=== PATIENT | female | born 1955 | race Caucasian/White ===

== ENCOUNTER 2018-03-06 17:09 | Emergency (ER) | END 2018-03-06 21:13 | disposition home or self-care (01) ==

== ENCOUNTER 2018-03-29 18:39 | Emergency (ER) | END 2018-03-29 23:51 | disposition home or self-care (01) ==

== ENCOUNTER 2018-04-09 12:06 | Emergency (ER) | END 2018-04-09 17:15 | disposition home or self-care (01) ==

== ENCOUNTER 2018-05-27 18:33 | Inpatient (IN) | payer BC ==
[~2018-05-27] VITALS: Ht 170.2 cm; Wt 77.0 kg
[~2018-05-27 18:33] MED LIST: DULO30CA45 PO; GLIP5TAB13 GTB; IBUP-1542 PO
[2018-05-27 22:03] VITALS: PULSE 112
[2018-05-27 22:05] VITALS: BP 117/56; PULSE 105; RESP 14
[2018-05-27 22:20] VITALS: Ht 170.2 cm; Wt 77.0 kg
[2018-05-27] MEDS ORDERED: morphine 2 MG INJ IV PRN (23:30)
[2018-05-27] MEDS ORDERED: ONDANSETRON 4 MG INJ IV PRN (23:30)
[2018-05-27] MEDS ORDERED: NACL 0.9% 3 ML SYG IV SCH (23:30)
[2018-05-27 23:52] VITALS: BP 119/58; PULSE 111; RESP 14
[2018-05-28] VITALS (25 sets, daily range): BP systolic 112–142; BP diastolic 52–82; PULSE 90–107; RESP 11–20
[2018-05-28] MEDS: HYDROCODONE/APAP (5/325) TAB PO PRN ×3 (00:26→15:41)
[2018-05-28] MEDS: ACETAMINOPHEN 325 MG TAB PO PRN (02:56)
[2018-05-28] MEDS ORDERED: DEXTROSE 50% 50 ML SYRINGE IV PRN ×2 (04:30)
[2018-05-28] MEDS ORDERED: GLUCOSE GEL 15 GRAM TUBE PO PRN ×2 (04:30)
[2018-05-28] MEDS ORDERED: GLUCOSE GEL 15 GRAM TUBE BUCCAL PRN (04:30)
[2018-05-28] MEDS ORDERED: GLUCAGON 1 MG INJ IM PRN (04:30)
--- NOTE | 2018-05-28 04:54 | NUR ---
Received patient at: 2215 Accompanied by: EMS Vitals: stable Pain: 8/10, generalized Pain intervention: [place] x1, Tylenol x1 Note: Pt refusing turning due to pain; refusing SCDs due to pain as well. I educated her on the importance of SCDs and turning She refuses any morphine IV. SW & PT consults ordered. Will continue to monitor.
--- NOTE | 2018-05-28 05:47 | HP ---
Date/Time of Note Date/Time of Note DATE: 05/28/18 TIME: 05:47 Assessment/Plan VTE Prophylaxis Risk score (from Nsg)>0 risk: 9 SCD applied (from Nsg): No SCD contraindicated: other (fractures) Pharmacological prophylaxis: heparin Lines/Catheters IV Catheter Type (from Nrsg): Peripheral IV Urinary Cath still in place: No Assessment/Plan Hospital Course This is a 62-year female being admitted to the telemetry floor for: #1 left elbow fracture: Patient is currently in a sling. I do not have any imaging studies available to me from the transfer facility. will obtain an x- ray of the left upper extremity. We will keep the patient with a sling. IV fluid hydration with normal saline, pain management. Defer to day team to consult orthopedic surgery #2 left hip pain: Patient has tenderness to palpation at the level of the anterior left hip, she does report difficulty moving. The current time will obtain x-rays, may need further imaging with CT. Defer to day team to consult with orthopedic surgery. non weight bearing at the current time until imaging studies are back and seen by orthopedics. #3 depression: Resume Cymbalta as indicated #4 diabetes mellitus: We will check a hemoglobin A1c, insulin sliding scale, will hold home oral medication at the current time, diabetic diet #5 DVT GI prophylaxis: Heparin subcu, no GI prophylaxis indicated further treatment strategy will be implemented as per the clinical course. Result Diagram: 05/27/18232705/27/182327 Results 24hrs Laboratory Tests Test 05/27/18 23:28 White Blood Count 7.8 # Red Blood Count 3.61 L Hemoglobin 9.8 L Hematocrit 30.6 L Mean Corpuscular Volume 84.8 Mean Corpuscular Hemoglobin 27.1 L Mean Corpuscular Hemoglobin Concent 32.0 Red Cell Distribution Width 15.4 H Platelet Count 236 Mean Platelet Volume 10.0 Immature Granulocytes % 0.500 H Neutrophils % 79.4 H Lymphocytes % 12.2 L Monocytes % 7.2 Eosinophils % 0.3 Basophils % 0.4 Nucleated Red Blood Cells % 0.0 Immature Granulocytes # 0.040 H Neutrophils # 6.2 Lymphocytes # 1.0 Monocytes # 0.6 Eosinophils # 0.0 Basophils # 0.0 Nucleated Red Blood Cells # 0.0 Sodium Level 132 L Potassium Level 4.2 Chloride Level 98 Carbon Dioxide Level 30 Anion Gap 4 L Blood Urea Nitrogen 13 Creatinine 0.52 Est Glomerular Filtrat Rate mL/min > 60 Glucose Level 167 Hemoglobin A1c 7.6 H Calcium Level 8.3 L Magnesium Level 1.8 Total Bilirubin 0.4 Direct Bilirubin 0.00 Indirect Bilirubin 0.4 Aspartate Amino Transf (AST/SGOT) 22 Alanine Aminotransferase (ALT/SGPT) 24 Alkaline Phosphatase 61 Total Protein 6.2 Albumin 3.1 L Globulin 3.10 Albumin/Globulin Ratio 1.00 Triglycerides Level 101 Cholesterol Level 119 LDL Cholesterol, Calculated 53 HDL Cholesterol 46 Cholesterol/HDL Ratio 2.5 Thyroid Stimulating Hormone (TSH) 1.280 HPI/ROS Admit Date/Time Admit Date/Time May 27, 2018 at 21:43 Hx of Present Illness Chief complaint: Status post fall This is a 62-year-old female with a past medical history of diabetes mellitus who was transferred from [facility] after she had sustained a ground-level fall. Patient is a poor historian however history was mainly obtained from her as I was not provided any ED physician documentation in the transfer documentation. Patient reports that she was going to a office but it was close to when she came down from the stairs she states that she fell. She denies any loss of consciousness. She states that she fell on her left shoulder as well as her left hip. She was evaluated at [facility]. Apparently she sustained a left elbow fracture. Patient at the current time does report pain in her left elbow as well as pain in her left hip. She is unsure whether she is ambulated since then. Allergies: Paroxetine Medications: See CHRISTOPHER MEDEROS Const: As per HPI Eyes : No pain discharge or redness or change in visual acuity ENT: No pain, sore throat, congestion, congestion, dysphagia or discharge Respiratory: No shortness of breath, cough, sputum, wheezing, or pleuritic pain Cardiovascular: No chest pain, palpitation, PND, or edema GI : no change in appetite, abdominal pain, nausea, vomiting, diarrhea, constipation, or change in the color his stool Genitourinary: No dysuria, hematuria, flank pain , discharge or CVA tenderness Musculoskeletal: As per HPI Skin: No rash, bruising or hives Neuro: No headache, dizziness, syncope, seizure, focal weakness Endocrine: No polyuria, polydipsia, temperature intolerance Psych: No hallucination, depression, anxiety or suicidal ideation PMH/Family/Social Past Medical History Diabetes mellitus, depression Medications Current Medications IV Flush (NS 3 ml) 3 ml PER PROTOCOL IV ; Start 05/27/18 at 23:30 Ondansetron HCl (Zofran Inj) 4 mg Q6H PRN IV NAUSEA AND/OR VOMITING; Start 05/27/18 at 23:30 Acetaminophen (Tylenol Tab) 650 mg Q6H PRN PO PAIN LEVEL 1-3 OR FEVER Last administered on 05/28/18at 02:56; Admin Dose 650 MG; Start 05/27/18 at 23:30 Acetaminophen/ Hydrocodone Bitart ([place] (5/325)) 1 tab Q6H PRN PO PAIN LEVEL 4-6 Last administered on 05/28/18at 00:26; Admin Dose 1 TAB; Start 05/27/18 at 23:30 Acetaminophen/ Hydrocodone Bitart ([place] (5/325)) 2 tab Q6H PRN PO PAIN LEVEL 7-10; Start 05/27/18 at 23:30 Morphine Sulfate (morphine) 2 mg Q4H PRN IV PAIN LEVEL 7-10; Start 05/27/18 at 23:30 Docusate Sodium (Colace) 100 mg Q12H PRN PO CONSTIPATION; Start 05/27/18 at 23:30 Bisacodyl (Dulcolax) 5 mg DAILY PRN PO CONSTIPATION; Start 05/27/18 at 23:30 Insulin Aspart (Novolog Insulin Pen) NOVOLOG *MILD* ALGORITHM WITH MEALS BEDTIME SC ; Start 05/28/18 at 08:00 Miscellaneous Information 1 ea NOTE XX ; Start 05/28/18 at 04:30 Glucose (Glutose) 15 gm Q15M PRN PO DECREASED GLUCOSE; Start 05/28/18 at 04:30 Glucose (Glutose) 22.5 gm Q15M PRN PO DECREASED GLUCOSE; Start 05/28/18 at 04:30 Dextrose (D50w Syringe) 25 ml Q15M PRN IV DECREASED GLUCOSE; Start 05/28/18 at 04:30 Dextrose (D50w Syringe) 50 ml Q15M PRN IV DECREASED GLUCOSE; Start 05/28/18 at 04:30 Glucagon (Glucagen) 1 mg Q15M PRN IM DECREASED GLUCOSE; Start 05/28/18 at 04:30 Glucose (Glutose) 15 gm Q15M PRN BUCCAL DECREASED GLUCOSE; Start 05/28/18 at 04:30 Coded Allergies: paroxetine (Verified Allergy, Unknown, 04/09/18) Past Surgical History Past Surgical Hx: no surgical history, other Family History Significant Family History: no pertinent family hx Social History Alcohol Use: occasionally Smoking Status: Never smoker Drug Use: none Exam/Review of Systems Vital Signs Vitals Vital Signs Date Temp Pulse Resp B/P (MAP) Pulse Ox O2 O2 Flow FiO2 Time Delivery Rate 05/28/18 98.9 100 15 119/52 96 Room Air 03:58 (74) Exam Exam General: Patient is currently lying in bed in mild distress from pain HEENT: Atraumatic, normocephalic. The pupils are equal, round and reactive. Extraocular motor are intact, poor dentition Neck: Supple with full range of motion. No rigidity or meningismus Chest: Nontender Lungs: Clear to auscultation bilaterally no crackles rales or wheezing Heart: Normal S1-S2, Regular rhythm and rate. No murmur, S3, or S4 Abdomen: Soft , nontender, nondistended , bowel sounds are present. No guarding no rebound tenderness , No masses or organomegaly. No costovertebral temporal angle mass Extremities: Left upper extremity currently in a sling, tenderness to palpation at the level of the elbow, left anterior hip pain to palpation Neurologic: Normal mental status, speech normal, cranial nerves II through XII are intact, motor and sensory are intact, gait not assessed secondary to patient's pain Additional Comments EKG: Show sinus tachycardia at approximately 102 bpm, no ST or T wave abnormalities concerning for acute ischemia. BRIAN CHOE May 28, 2018 05:47
--- NOTE | 2018-05-28 06:27 | NUR ---
EOSS N: A&Ox3-4, confused at times, anxious. Complaints of pain throughout shift, partially treated with [place] & Tylenol. Pt refuses morphine. R: RA, saturating well. No sob or dyspnea. CV: NSR, ST. + Murmur GI: ACHS initiated. A1c 7.6 : Bedpan. x2 urinations. MS: BLE pain, L. elbow fracture. Q2hr turning, pt refused at times. SCDs discontinued my MD. Low-air loss ordered. POC: Syncope workup (echo, carotid duplex); XR elbow (L), XR bilateral hip. All of patient's needs attended to. Bed in locked and low position. Bed alarm on at all times. Will endorse to AM nurse.
[2018-05-28] MEDS: HEPARIN 5,000 UNIT/1 ML VIAL SC SCH ×2 (06:50→12:29)
[2018-05-28] MEDS ORDERED: EPHEDrine SULFATE 50 MG/5 ML SYG ONE (07:00)
[2018-05-28] MEDS ORDERED: PROPOFOL 200 MG INJ ONE (07:00)
[2018-05-28] MEDS ORDERED: CEFAZOLIN 1 GM INJ ONE (07:00)
[2018-05-28] MEDS ORDERED: ALBUMIN HUMAN 5% 250 ML INJ ONE (07:00)
[2018-05-28] MEDS ORDERED: SEVOFLURANE 15 MIN ONE (07:00)
[2018-05-28] MEDS: INSULIN ASPART [NOVOLOG] 3 ML PEN SC SCH ×4 (08:30→21:00)
--- NOTE | 2018-05-28 08:58 | PN ---
Date/Time of Note Date/Time of Note DATE: 05/28/18 TIME: 08:58 Assessment/Plan VTE Prophylaxis Risk score (from Nsg)>0 risk: 9 SCD applied (from Nsg): Yes Pharmacological prophylaxis: heparin Lines/Catheters IV Catheter Type (from Nrsg): Peripheral IV Urinary Cath still in place: No Assessment/Plan Assessment/Plan 1. Left proximal humerus fracture and a closed severely comminuted intra- articular left distal humerus fracture - Discussed case with Orthopedic surgery and recommending transfer to higher level of care with fellow trained shoulder-elbow surgeon. Spoke with CM and will reach out to [facility] to initiate transfer. - Pain control and continue arm in sling with nonweight bearing to LUE 2. Left femoral neck fracture - Ortho on board and consultation appreciated. Plans for surgical intervention tonight if unable to transfer patient to tertiary center today - keep NPO in anticipation for surgery - Labs reviewed and within normal limits. Patient does not have any cardiac history and EKG is without ST changes. Patient is optimized medically to underg o surgical intervention. 3. h/o depression - patient states she has not been taking Cymbalta since last discharge but helped when on the medication in the past 4. Diabetes Mellitus - A1c noted - holding glipizide at this time - ISS and accuchecks 5. Disposition - Plans for left hip repair tonight if unable to transfer to high level of care for surgical repair of humeral fracture - Medically cleared for surgical intervention and risks/benefits discussed with patient at bedside - Downgrade to med/surg ortho floor Result Diagram: 05/27/188 05/27/18 2328 Results 24hrs Laboratory Tests Test 05/27/18 23:28 05/28/18 08:03 White Blood Count 7.8 # Red Blood Count 3.61 L Hemoglobin 9.8 L Hematocrit 30.6 L Mean Corpuscular Volume 84.8 Mean Corpuscular Hemoglobin 27.1 L Mean Corpuscular Hemoglobin Concent 32.0 Red Cell Distribution Width 15.4 H Platelet Count 236 Mean Platelet Volume 10.0 Immature Granulocytes % 0.500 H Neutrophils % 79.4 H Lymphocytes % 12.2 L Monocytes % 7.2 Eosinophils % 0.3 Basophils % 0.4 Nucleated Red Blood Cells % 0.0 Immature Granulocytes # 0.040 H Neutrophils # 6.2 Lymphocytes # 1.0 Monocytes # 0.6 Eosinophils # 0.0 Basophils # 0.0 Nucleated Red Blood Cells # 0.0 Sodium Level 132 L Potassium Level 4.2 Chloride Level 98 Carbon Dioxide Level 30 Anion Gap 4 L Blood Urea Nitrogen 13 Creatinine 0.52 Est Glomerular Filtrat Rate mL/min > 60 Glucose Level 167 Hemoglobin A1c 7.6 H Calcium Level 8.3 L Magnesium Level 1.8 Total Bilirubin 0.4 Direct Bilirubin 0.00 Indirect Bilirubin 0.4 Aspartate Amino Transf (AST/SGOT) 22 Alanine Aminotransferase (ALT/SGPT) 24 Alkaline Phosphatase 61 Total Protein 6.2 Albumin 3.1 L Globulin 3.10 Albumin/Globulin Ratio 1.00 Triglycerides Level 101 Cholesterol Level 119 LDL Cholesterol, Calculated 53 HDL Cholesterol 46 Cholesterol/HDL Ratio 2.5 Thyroid Stimulating Hormone (TSH) 1.280 Bedside Glucose 183 Subjective 24 Hr Interval Summary Free Text/Dictation Patient drowsy but given pain control recently. Patient states she has been doing well after last admission until yesterday when she sustained the fall. She denies any recent binge drinking and only had a few drinks during the holiday season. Does admit to pain but controlled with current pain control. Exam/Review of Systems Vital Signs Vitals Vital Signs Date Temp Pulse Resp B/P (MAP) Pulse Ox O2 O2 Flow FiO2 Time Delivery Rate 05/28/18 97.6 93 113/54 94 Room Air 07:18 (73) 05/28/18 15 03:58 Intake and Output 05/27/18 05/27/18 05/28/18 1515:00 23:00 07:00 IntakeIntake Total 300 ml BalanceBalance 300 ml Exam General: Patient is currently lying in bed, drowsy but in no acute distress Neck: Supple Lungs: Clear to auscultation bilaterally no crackles rales or wheezing Heart: Normal S1-S2, Regular rhythm and rate. No murmur, S3, or S4 Abdomen: Soft , nontender, nondistended , bowel sounds are present. No guarding no rebound tenderness Extremities: left upper extremity in kerlix. when removed a small area of bleeding but no open fracture appreciated. tenderness to palpation at the level of the elbow, left anterior hip pain to palpation Skin: open area lateral aspect of L elbow with ecchymosis and swelling. Medications Medications Current Medications IV Flush (NS 3 ml) 3 ml PER PROTOCOL IV ; Start 05/27/18 at 23:30 Ondansetron HCl (Zofran Inj) 4 mg Q6H PRN IV NAUSEA AND/OR VOMITING; Start 05/27/18 at 23:30 Acetaminophen (Tylenol Tab) 650 mg Q6H PRN PO PAIN LEVEL 1-3 OR FEVER Last administered on 05/28/18at 02:56; Admin Dose 650 MG; Start 05/27/18 at 23:30 Acetaminophen/ Hydrocodone Bitart ([place] (5/325)) 1 tab Q6H PRN PO PAIN LEVEL 4-6 Last administered on 05/28/18at 00:26; Admin Dose 1 TAB; Start 05/27/18 at 23:30 Acetaminophen/ Hydrocodone Bitart ([place] (5/325)) 2 tab Q6H PRN PO PAIN LEVEL 7-10; Start 05/27/18 at 23:30 Morphine Sulfate (morphine) 2 mg Q4H PRN IV PAIN LEVEL 7-10; Start 05/27/18 at 23:30 Docusate Sodium (Colace) 100 mg Q12H PRN PO CONSTIPATION; Start 05/27/18 at 23:30 Bisacodyl (Dulcolax) 5 mg DAILY PRN PO CONSTIPATION; Start 05/27/18 at 23:30 Insulin Aspart (Novolog Insulin Pen) NOVOLOG *MILD* ALGORITHM WITH MEALS BEDTIME SC Last administered on 05/28/18at 08:30; Admin Dose 2 UNIT; Start 05/28/18 at 08:00 Miscellaneous Information 1 ea NOTE XX ; Start 05/28/18 at 04:30 Glucose (Glutose) 15 gm Q15M PRN PO DECREASED GLUCOSE; Start 05/28/18 at 04:30 Glucose (Glutose) 22.5 gm Q15M PRN PO DECREASED GLUCOSE; Start 05/28/18 at 04:30 Dextrose (D50w Syringe) 25 ml Q15M PRN IV DECREASED GLUCOSE; Start 05/28/18 at 04:30 Dextrose (D50w Syringe) 50 ml Q15M PRN IV DECREASED GLUCOSE; Start 05/28/18 at 04:30 Glucagon (Glucagen) 1 mg Q15M PRN IM DECREASED GLUCOSE; Start 05/28/18 at 04:30 Glucose (Glutose) 15 gm Q15M PRN BUCCAL DECREASED GLUCOSE; Start 05/28/18 at 04:30 Heparin Sodium (Porcine) (Heparin (5000 Units/1ml)) 5,000 unit Q8 SC Last administered on 05/28/18at 06:50; Admin Dose 5,000 UNIT; Start 05/28/18 at 06:30 VALERY LI MD May 28, 2018 08:58
--- NOTE | 2018-05-28 10:30 | NUR ---
PT NOTE: Received MD order for PT evaluation. Patient with elbow, humerus and L hip fracture. Will await ortho consult for further clarification. Matilde CAMPOS notified.
[2018-05-28] MEDS ORDERED: LORAZEPAM 2 MG INJ IV PRN (11:30)
[2018-05-28] MEDS: DULOXETINE 30 MG CAP DR PO SCH (11:52)
--- NOTE | 2018-05-28 12:31 | CONS ---
Date/Time of Note Date/Time of Note DATE: 05/28/18 TIME: 12:15 Assessment/Plan Assessment/Plan Hospital Course This is a 62-year-old female who was transferred to [facility]. Upon evaluation she is in fact a polytrauma she has of multiple fractures including the left proximal humerus fracture, a closed severely comminuted intra-articular left distal humerus fracture as well as a left femoral neck fracture. Given the complexity of her elbow fracture she requires a fellowship trained shoulder- elbow surgeon. I will also defer the treatment of the proximal humerus fracture to that surgeon. None is available at this time at [facility]. Therefore I am recommending transfer to higher level of care. The primary team as well as case management had already started the process to have her trans ferred to [facility]. However this may take a couple days. Therefore I am recommending that she does undergo fixation of her left hip fracture while admitted to [facility] in order to prevent displacement, enable mobilization, and decreased pain. She does need additional imaging for complete evaluation of the elbow and proximal humerus fracture. However since that these will not be definitively treated here at [facility], I will defer obtaining the CT scans until she sees her treating surgeon so he or she can have the imaging in their system. Plan: Percutaneous fixation of the left hip fracture tonight. Will need formal AP pelvis as well as AP and lateral of the left femur for preoperative planning as the current radiographs were not adequate quality. Preop clearance Follow-up coagulation studies Nonweightbearing left lower extremity Nonweightbearing left upper extremity. Continue posterior splint and sling for left upper extremity. No range of motion. DVT prophylaxis: SCDs. Postop Lovenox 40 mg daily will be added. Result Diagram: 05/27/18232705/27/182327 Results 24hrs Laboratory Tests Test 05/27/18 23:28 05/28/18 08:03 05/28/18 08:32 05/28/18 11:51 White Blood Count 7.8 # Red Blood Count 3.61 L Hemoglobin 9.8 L Hematocrit 30.6 L Mean Corpuscular 84.8 Volume Mean Corpuscular 27.1 L Hemoglobin Mean Corpuscular 32.0 Hemoglobin Concent Red Cell 15.4 H Distribution Width Platelet Count 236 Mean Platelet Volume 10.0 Immature 0.500 H Granulocytes % Neutrophils % 79.4 H Lymphocytes % 12.2 L Monocytes % 7.2 Eosinophils % 0.3 Basophils % 0.4 Nucleated Red Blood 0.0 Cells % Immature 0.040 H Granulocytes # Neutrophils # 6.2 Lymphocytes # 1.0 Monocytes # 0.6 Eosinophils # 0.0 Basophils # 0.0 Nucleated Red Blood 0.0 Cells # Sodium Level 132 L Potassium Level 4.2 Chloride Level 98 Carbon Dioxide Level 30 Anion Gap 4 L Blood Urea Nitrogen 13 Creatinine 0.52 Est Glomerular > 60 Filtrat Rate mL/min Glucose Level 167 Hemoglobin A1c 7.6 H Calcium Level 8.3 L Magnesium Level 1.8 Total Bilirubin 0.4 Direct Bilirubin 0.00 Indirect Bilirubin 0.4 Aspartate Amino 22 Transf (AST/SGOT) Alanine 24 Aminotransferase (AL T/SGPT) Alkaline Phosphatase 61 Total Protein 6.2 Albumin 3.1 L Globulin 3.10 Albumin/Globulin 1.00 Ratio Triglycerides Level 101 Cholesterol Level 119 LDL Cholesterol, 53 Calculated HDL Cholesterol 46 Cholesterol/HDL 2.5 Ratio Thyroid Stimulating 1.280 Hormone (TSH) Bedside Glucose 183 179 Hepatitis B Surface NEGATIVE Antigen Hepatitis C Antibody NEGATIVE Consultation Date/Type/Reason Admit Date/Time May 27, 2018 at 21:43 Date of Consultation: May 28, 2018 Reason for Consultation Left upper and lower extremity injury. Hx of Present Illness This is a 62-year-old female who first presented to an outside hospital [facility]. Per report she was diagnosed with left elbow injury as well as a possible left hip fracture. Secondary to insurance reasons she was transferred to [facility]. At that time I was consulted for orthopedic evaluation and treatment. The patient states she has pain in her left elbow and arm as well as her left leg. She denies numbness and tingling both the left arm and leg. Patient states that she fell down a step or 2. She is unsure how this happened. She cannot clearly tell me if she had loss of consciousness. Denies previous injury to to her left arm and leg. Prior to this she did not have any hip pain or difficulty ambulating. Of note patient states that she does drink alcohol on a rare occasion. She then added that she is to regularly go to AA meetings secondary to alcohol dependence. States her last drink was at least a couple weeks ago. Patient denies fever, chills, shortness of breath, chest pain, nausea/vomiting, constipation, diarrhea, numbness, and tingling. Past Medical History Diabetes Impression Alcohol dependence Medications Current Medications IV Flush (NS 3 ml) 3 ml PER PROTOCOL IV ; Start 05/27/18 at 23:30 Ondansetron HCl (Zofran Inj) 4 mg Q6H PRN IV NAUSEA AND/OR VOMITING; Start 05/27/18 at 23:30 Acetaminophen (Tylenol Tab) 650 mg Q6H PRN PO PAIN LEVEL 1-3 OR FEVER Last administered on 05/28/18at 02:56; Admin Dose 650 MG; Start 05/27/18 at 23:30 Acetaminophen/ Hydrocodone Bitart ([place] (5/325)) 1 tab Q6H PRN PO PAIN LEVEL 4-6 Last administered on 05/28/18at 00:26; Admin Dose 1 TAB; Start 05/27/18 at 23:30 Acetaminophen/ Hydrocodone Bitart ([place] (5/325)) 2 tab Q6H PRN PO PAIN LEVEL 7-10; Start 05/27/18 at 23:30 Morphine Sulfate (morphine) 2 mg Q4H PRN IV PAIN LEVEL 7-10; Start 05/27/18 at 23:30 Docusate Sodium (Colace) 100 mg Q12H PRN PO CONSTIPATION; Start 05/27/18 at 23:30 Bisacodyl (Dulcolax) 5 mg DAILY PRN PO CONSTIPATION; Start 05/27/18 at 23:30 Insulin Aspart (Novolog Insulin Pen) NOVOLOG *MILD* ALGORITHM WITH MEALS BEDTIME SC Last administered on 05/28/18at 08:30; Admin Dose 2 UNIT; Start 05/28/18 at 08:00 Miscellaneous Information 1 ea NOTE XX ; Start 05/28/18 at 04:30 Glucose (Glutose) 15 gm Q15M PRN PO DECREASED GLUCOSE; Start 05/28/18 at 04:30 Glucose (Glutose) 22.5 gm Q15M PRN PO DECREASED GLUCOSE; Start 05/28/18 at 04:30 Dextrose (D50w Syringe) 25 ml Q15M PRN IV DECREASED GLUCOSE; Start 05/28/18 at 04:30 Dextrose (D50w Syringe) 50 ml Q15M PRN IV DECREASED GLUCOSE; Start 05/28/18 at 04:30 Glucagon (Glucagen) 1 mg Q15M PRN IM DECREASED GLUCOSE; Start 05/28/18 at 04:30 Glucose (Glutose) 15 gm Q15M PRN BUCCAL DECREASED GLUCOSE; Start 05/28/18 at 04:30 Heparin Sodium (Porcine) (Heparin (5000 Units/1ml)) 5,000 unit Q8 SC Last administered on 05/28/18at 06:50; Admin Dose 5,000 UNIT; Start 05/28/18 at 06:30 Allergies: Coded Allergies: paroxetine (Verified Allergy, Unknown, 04/09/18) Past Surgical History Past Surgical Hx: no surgical history, other Family History Significant Family History: no pertinent family hx Social History Alcohol Use: occasionally Smoking Status: Never smoker Drug Use: none Exam/Review of Systems Vital Signs Vitals Vital Signs Date Temp Pulse Resp B/P (MAP) Pulse Ox O2 O2 Flow FiO2 Time Delivery Rate 05/28/18 97.6 93 113/54 94 Room Air 07:18 (73) 05/28/18 15 03:58 Intake and Output 05/27/18 05/27/18 05/28/18 1515:00 23:00 07:00 IntakeIntake Total 300 ml BalanceBalance 300 ml Exam General: Awake, alert, in no acute distress, pleasant and cooperative Heart: regular rhythm Lungs: breathing comfortably, no tachypnea or dyspnea MUSCULOSKELETAL: Left upper extremity: Posterior splint was removed. There is a bandage over the posterior aspect of the elbow. This was removed. There was a soft tissue wound with bleeding. The wound was approximately half centimeter by half centimeter with a more superficial abrasion about 3 x 5 cm. The wound was cleaned and probed with a sterile Q-tip. There was no violation of the deep subcutaneous tissue. The wound was a full-thickness dermal injury. Swelling and ecchymosis about the elbow with tenderness to palpation. There is tenderness to palpation to the proximal humerus. Nontender to palpation along the forearm and wrist and hand. Sensation intact to light touch in a median, ulnar, radial, and axillary distribution. Motor is intact in a median, ulnar, radial, anterior interosseous, and posterior interosseous nerve distribution. Radial and ulnar artery are +2. Wrist extension and flexion are intact. Compartments are soft. Left lower extremity: Skin intact. There is groin pain to logroll. No rotational deformity. Legs not shortened. Sensation intact to light touch in a sural, saphenous, deep peroneal, superficial peroneal, medial and lateral plantar nerve distribution. Motor is intact, patient able to dorsiflex and plantarflex ankle and extend and flex great toe. Dorsalis Pedis pulse +2, Brisk capillary refill. Compartments are soft. Calves non-tender to palpation bilaterally. Medications Medications Current Medications IV Flush (NS 3 ml) 3 ml PER PROTOCOL IV ; Start 05/27/18 at 23:30 Ondansetron HCl (Zofran Inj) 4 mg Q6H PRN IV NAUSEA AND/OR VOMITING; Start 05/27/18 at 23:30 Acetaminophen (Tylenol Tab) 650 mg Q6H PRN PO PAIN LEVEL 1-3 OR FEVER Last administered on 05/28/18at 02:56; Admin Dose 650 MG; Start 05/27/18 at 23:30 Acetaminophen/ Hydrocodone Bitart ([place] (5/325)) 1 tab Q6H PRN PO PAIN LEVEL 4-6 Last administered on 05/28/18at 00:26; Admin Dose 1 TAB; Start 05/27/18 at 23:30 Acetaminophen/ Hydrocodone Bitart ([place] (5/325)) 2 tab Q6H PRN PO PAIN LEVEL 7-10; Start 05/27/18 at 23:30 Morphine Sulfate (morphine) 2 mg Q4H PRN IV PAIN LEVEL 7-10; Start 05/27/18 at 23:30 Docusate Sodium (Colace) 100 mg Q12H PRN PO CONSTIPATION; Start 05/27/18 at 23:30 Bisacodyl (Dulcolax) 5 mg DAILY PRN PO CONSTIPATION; Start 05/27/18 at 23:30 Insulin Aspart (Novolog Insulin Pen) NOVOLOG *MILD* ALGORITHM WITH MEALS BEDTIME SC Last administered on 05/28/18at 08:30; Admin Dose 2 UNIT; Start 05/28/18 at 08:00 Miscellaneous Information 1 ea NOTE XX ; Start 05/28/18 at 04:30 Glucose (Glutose) 15 gm Q15M PRN PO DECREASED GLUCOSE; Start 05/28/18 at 04:30 Glucose (Glutose) 22.5 gm Q15M PRN PO DECREASED GLUCOSE; Start 05/28/18 at 04:30 Dextrose (D50w Syringe) 25 ml Q15M PRN IV DECREASED GLUCOSE; Start 05/28/18 at 04:30 Dextrose (D50w Syringe) 50 ml Q15M PRN IV DECREASED GLUCOSE; Start 05/28/18 at 04:30 Glucagon (Glucagen) 1 mg Q15M PRN IM DECREASED GLUCOSE; Start 05/28/18 at 04:30 Glucose (Glutose) 15 gm Q15M PRN BUCCAL DECREASED GLUCOSE; Start 05/28/18 at 04:30 Heparin Sodium (Porcine) (Heparin (5000 Units/1ml)) 5,000 unit Q8 SC Last administered on 05/28/18at 06:50; Admin Dose 5,000 UNIT; Start 05/28/18 at 06:30 Imaging Imaging All x-rays obtained after admission and personally reviewed by myself. AP and lateral of the left hip demonstrate a minimally displaced valgus impacted subcapital femoral neck fracture. Quality of x-ray is poor secondary to being portable and position. Bone is diffusely osteopenic 3 views of the left elbow in the posterior splint demonstrate a severely comminuted intra-articular Y type distal humerus fracture. There is significant displacement of the fracture. The fracture lines are quite distal. Bone is diffusely osteopenic 2 views of the left humerus again demonstrate a distal humerus fracture, though poorly visualized. A surgical neck and greater tuberosity fracture is visualized with minimal displacement of the surgical neck. Bone is diffusely osteopenic With 2 views of the left forearm again demonstrate distal humerus fracture that is poorly visualized. No additional injury noted. Bone is diffusely osteopenic ABRAHAM ZIMMERMAN MD May 28, 2018 12:26
--- NOTE | 2018-05-28 12:31 | NUR ---
CASE MANAGEMENT NOTE REFERRAL MADE TO [facility] IN REGARD TO ELBOW FX AND SURGERY, CM S/W KUMAR [phone] AT [facility] AND PT IS BEING REVIEWED AND KUMAR WAS PROVIDED WITH MD ERASMO GALVAN AND MD LI'S CONTACT INFORMATION WELL, MALIK AT [facility] MADE AWARE, CM WILL REMAIN AVAILABLE. Addendum: 05/28/18 at 1249 by CARMELA BELTRAN RN, CM MD ERASMO GALVAN
[2018-05-28] MEDS: morphine 4 MG/ML VIAL IV PRN (13:25)
[2018-05-28] MEDS ORDERED: PIPER-TAZO 3.375 GM IV (PMX) 100 ML IVPB SCH (14:00)
--- NOTE | 2018-05-28 18:40 | NUR ---
EOSS: Report given to Zayda Pre-op, stated will picker and sorter load and unload pt in 30 mins; coordinated with transport. Consent obtained for surgery tonight. Kept pt on NPO status. Pt asleep at this time. [place] and morphine given for pain on LT hip. Assisted pt to bedpan to urinate, kept pt clean and dry throughout the shift. Med surg status, pending bed. All needs attended at this time. Will endorse plan of care to oncoming shift.
--- NOTE | 2018-05-28 19:18 | PREAC ---
Date/Time of Note Date/Time of Note DATE: 05/28/18 TIME: 19:16 Anesthesia Eval and Record Evaluation Time Pre-Procedure Interview DATE: 05/28/18 TIME: 19:16 Age 62 Sex female NPO: 8 hrs Preoperative diagnosis Left Femur Fracture and Left Elbow and Humerus Fracture Planned procedure Left femoral Hemiarthroplasty vs Screw Fixation Past Medical History Past Medical History: Includes Cardio: HTN Endo: Diabetes Heme: Anemia Surgery & Anesthesia Issues No known issue Meds Anticoagulation: No Beta Walt within 24 hr: No Reason Beta Walt not given: Pt. not on B-Walt Active Scripts Glipizide* (Glipizide*) 5 Mg Tablet, 2.5 MG GTB AC BREAKFAST, #30 TAB Prov:NING MONTANEZ MD 02/20/18 Duloxetine Hcl* (Cymbalta*) 30 Mg Capsule.dr, 30 MG PO DAILY, #30 Prov:NING MONTANEZ MD 02/20/18 Reported Medications Ibuprofen* (Ibuprofen*) 600 Mg Tablet, 600 MG PO Q8, TAB 03/06/18 Current Medications IV Flush (NS 3 ml) 3 ml PER PROTOCOL IV ; Start 05/27/18 at 23:30 Ondansetron HCl (Zofran Inj) 4 mg Q6H PRN IV NAUSEA AND/OR VOMITING; Start 05/27/18 at 23:30 Acetaminophen (Tylenol Tab) 650 mg Q6H PRN PO PAIN LEVEL 1-3 OR FEVER Last administered on 05/28/18at 02:56; Admin Dose 650 MG; Start 05/27/18 at 23:30 Acetaminophen/ Hydrocodone Bitart ([place] (5/325)) 1 tab Q6H PRN PO PAIN LEVEL 4-6 Last administered on 05/28/18at 00:26; Admin Dose 1 TAB; Start 05/27/18 at 23:30 Acetaminophen/ Hydrocodone Bitart ([place] (5/325)) 2 tab Q6H PRN PO PAIN LEVEL 7-10 Last administered on 05/28/18at 15:41; Admin Dose 2 TAB; Start 05/27/18 at 23:30 Docusate Sodium (Colace) 100 mg Q12H PRN PO CONSTIPATION; Start 05/27/18 at 23:30 Bisacodyl (Dulcolax) 5 mg DAILY PRN PO CONSTIPATION; Start 05/27/18 at 23:30 Insulin Aspart (Novolog Insulin Pen) NOVOLOG *MILD* ALGORITHM WITH MEALS BEDTIME SC Last administered on 05/28/18at 18:09; Admin Dose 1 UNIT; Start 05/28/18 at 08:00 Miscellaneous Information 1 ea NOTE XX ; Start 05/28/18 at 04:30 Glucose (Glutose) 15 gm Q15M PRN PO DECREASED GLUCOSE; Start 05/28/18 at 04:30 Glucose (Glutose) 22.5 gm Q15M PRN PO DECREASED GLUCOSE; Start 05/28/18 at 04:30 Dextrose (D50w Syringe) 25 ml Q15M PRN IV DECREASED GLUCOSE; Start 05/28/18 at 04:30 Dextrose (D50w Syringe) 50 ml Q15M PRN IV DECREASED GLUCOSE; Start 05/28/18 at 04:30 Glucagon (Glucagen) 1 mg Q15M PRN IM DECREASED GLUCOSE; Start 05/28/18 at 04:30 Glucose (Glutose) 15 gm Q15M PRN BUCCAL DECREASED GLUCOSE; Start 05/28/18 at 04:30 Heparin Sodium (Porcine) (Heparin (5000 Units/1ml)) 5,000 unit Q8 SC Last administered on 05/28/18at 06:50; Admin Dose 5,000 UNIT; Start 05/28/18 at 06:30; Status Hold Piperacillin Sod/ Tazobactam Sod 100 ml @ 200 mls/hr Q8 IVPB Last administered on 05/28/18at 14:56; Admin Dose 200 MLS/HR; Start 05/28/18 at 14:00 Lorazepam (Ativan) 1 mg Q2H PRN IV withdrawal, anxiety, agitation; Start 05/28/18 at 11:30 Duloxetine HCl (Cymbalta) 30 mg DAILY PO Last administered on 05/28/18at 11:52; Admin Dose 30 MG; Start 05/28/18 at 11:30 Morphine Sulfate (morphine) 2 mg Q4H PRN IV PAIN LEVEL 7-10 Last administered on 05/28/18at 13:25; Admin Dose 2 MG; Start 05/28/18 at 13:30 Meds reviewed: Yes Allergies Coded Allergies: paroxetine (Verified Allergy, Unknown, 04/09/18) Allergies Reviewed: Yes Labs/Studies Labs Reviewed: Reviewed by anesthesiologist Result Diagram: 05/28/18 1207 05/28/18 1208 Laboratory Tests 05/28/18 12:07 05/28/18 12:08 Blood Bank Test 05/28/18 12:07 Antibody Screen NEGATIVE Blood Type A POSITIVE test: N/A Studies: ECG (NSR), CXR (n/a) Pre-procedure Exam Last vitals Vital Signs Date Temp Pulse Resp B/P (MAP) Pulse Ox O2 O2 Flow FiO2 Time Delivery Rate 05/28/18 97.7 92 18 129/58 97 Room Air 15:32 (81) Airway: Adequate mouth opening, Adequate thyromental dist Mallampati: Mallampati II Teeth: Normal Lung: Normal Heart: Normal ASA Physical Status ASA physical status: 3 Emergency: None Planned Anesthetic General/MAC: ETT, LMA Neuraxial: Spinal Nerve block: Other (Fascia [place]) Planned Pain Management Sub-arachniod narcotics, Parenteral pain med Pre-operative Attestations Prior to commencing anesthesia and surgery, the patient was re-evaluated, there was verification of: *The patient's identity *The results of appropriate recent lab work and preoperative vital signs *The above evaluation not changing prior to induction *Anesthetic plan, risk benefits, alternative and complications discussed with p atient/family; questions answered; patient/family understands, accepts and wishes to proceed. RIVER RODRIGUES MD May 28, 2018 19:18
[2018-05-28] MEDS ORDERED: MIDAZOLAM 1 MG/ML 2 ML INJ ONE (19:24)
[2018-05-28] MEDS ORDERED: FENTAnyl 50 MCG/ML VIAL ONE (19:24)
[2018-05-28] MEDS ORDERED: morphine SULFATE/PF (10 MG/10 ML) INJ ONE (19:25)
[2018-05-28] MEDS ORDERED: METOCLOPRAMIDE 10 MG INJ IV PRN (20:00)
[2018-05-28] MEDS ORDERED: ALBUMIN HUMAN 5% 250 ML IV PRN (20:00)
[2018-05-28] MEDS ORDERED: HYDROmorphONE 1 MG/5 ML IV SYRINGE IV PRN ×3 (20:00)
[2018-05-28] MEDS ORDERED: hydrALAzine 20 MG INJ IV PRN (20:00)
[2018-05-28] MEDS ORDERED: FENTAnyl 50 MCG/ML VIAL IV PRN ×3 (20:00)
[2018-05-28] MEDS ORDERED: DIPHENHYDRAMINE 50 MG INJ IV PRN (20:00)
[2018-05-28] MEDS ORDERED: OXYCODONE/ACETAMINOPHEN (5/325) TAB PO PRN (20:00)
[2018-05-28] MEDS ORDERED: ONDANSETRON 4 MG INJ IV PRN (20:00)
[2018-05-28] MEDS ORDERED: MEPERIDINE 25 MG INJ IV PRN (20:00)
[2018-05-28] MEDS ORDERED: LABETALOL HCL 20MG INJ IV PRN (20:00)
[2018-05-28] MEDS ORDERED: EPHEDrine SULFATE 50 MG/5 ML SYG IV PRN (20:00)
[2018-05-28] MEDS ORDERED: NALOXONE (0.4 MG/ML) INJ IV PRN (20:00)
[2018-05-28] MEDS ORDERED: METOCLOPRAMIDE 10 MG INJ ONE (20:11)
[2018-05-28] MEDS ORDERED: PHENYLephrine (100 MCG/ML) 5ML SYG ONE (20:11)
[2018-05-28] MEDS ORDERED: DEXAMETHASONE 4 MG/ML 5 ML INJ ONE (20:11)
[2018-05-28] MEDS ORDERED: HETASTARCH 6% NACL 500 ML ONE (20:11)
[2018-05-28] MEDS ORDERED: ONDANSETRON 4 MG INJ ONE (20:11)
[2018-05-28] MEDS ORDERED: ALBUMIN HUMAN 5% 250 ML ONE (20:11)
[2018-05-28] MEDS ORDERED: ROPIVACAINE 0.2% 20 ML VIAL ONE (21:25)
--- NOTE | 2018-05-28 22:08 | PAC ---
Date/Time of Note Date/Time of Note DATE: 05/28/18 TIME: 22:08 Post-Anesthesia Notes Post-Anesthesia Note Last documented vital signs Vital Signs Date Temp Pulse Resp B/P (MAP) Pulse Ox O2 O2 Flow FiO2 Time Delivery Rate 05/28/18 97.7 92 18 129/58 97 Room Air 22:12 (81) Activity: WNL Respiratory function: WNL Cardiovascular function: WNL Mental status: Baseline Pain reasonably controlled: Yes Hydration appropriate: Yes Nausea/Vomiting absent: Yes RIVER RODRIGUES MD May 28, 2018 22:08
--- NOTE | 2018-05-28 22:25 | RADRPT ---
Echocardiogram Report Patient Name: LUANN KEN Gender: Female Date: 1955 Study Date: 28-May-2018 Project Crew Worker: Allen Madden [facility] Location: [address] Ref. Physician: BRIAN CHOE Quality: Adequate Procedures: Transthoracic echocardiogram with complete 2D, M-Mode, and doppler examination. Indications: Syncope. 2D/M Mode Doppler Measurement Value Normal Ranges Measurement Value Normal Ranges LVIDd 2D 3.4 3.5 - 5.6 cm AV Peak Abraham 1.4 m/sec LVIDs 2D 2.5 2.1 - 4.1 cm AV Peak PG 8.0 mmHg LVPWd 2D 1.1 0.6 - 1.1 cm LVOT Peak Abraham 0.8 m/sec IVSd 2D 1.1 0.6 - 1.1 cm LVOT Peak PG 3.0 mmHg AoR Diam 2D 2.7 2.0 - 3.7 cm MV E Peak Abraham 0.9 m/sec LA/Ao 2D 1 0 - 1 MV A Peak Abraham 1.4 m/sec LA Dimen 2D 3.6 2.3 - 4.0 cm MV E/A 0.7 MV Decel Time 130 msec Lat E` Abraham 0.1 m/sec Lateral E/E` 9.9 Med E` Abraham 0.1 m/sec MV E/A 0.7 TR Peak Abraham 2.9 m/sec TR Peak PG 34.0 mmHg RVSP 44.0 mmHg Findings Left Ventricle: Normal left ventricular systolic function. Normal left ventricular cavity size. Left ventricular wall thickness upper limits of normal. Ejection fraction is visually estimated at 65 %. Tissue Doppler/Mitral Doppler indices are consistent with impaired relaxation (Stage I diastolic dysfunction). Right Ventricle: Normal right ventricular size. Normal right ventricular systolic function. Left Atrium: The left atrium is normal in size. Right Atrium: The right atrium is normal in size. Mitral Valve: Mild mitral leaflet calcification. Mild mitral annular calcification. Trace mitral regurgitation. Aortic Valve: No significant aortic stenosis or insufficiency. Aortic valve not well visualized. Aortic cusps appear mildly calcified. No aortic regurgitation. Tricuspid Valve: Normal appearance of the tricuspid valve. Estimated peak PA systolic pressure 44 mmHg. There is mild tricuspid regurgitation. Pericardium: Normal pericardium with no significant pericardial effusion. Aorta: Normal aortic root. IVC: Normal size and normal respiratory collapse consistent with normal right atrial pressure. Conclusions Normal left ventricular systolic function. Normal left ventricular cavity size. Left ventricular wall thickness upper limits of normal. Ejection fraction is visually estimated at 65 %. Tissue Doppler/Mitral Doppler indices are consistent with impaired relaxation (Stage I diastolic dysfunction). Mild mitral leaflet calcification. Mild mitral annular calcification. Trace mitral regurgitation. No significant aortic stenosis or insufficiency. Aortic valve not well visualized. Aortic cusps appear mildly calcified. No aortic regurgitation. Normal appearance of the tricuspid valve. Estimated peak PA systolic pressure 44 mmHg. There is mild tricuspid regurgitation. Electronically Signed By: Guy Cuba 28-May-2018 22:24:06 -0800 Patient Name: LUANN KEN Study Date: 28-May-[id number]
--- NOTE | 2018-05-28 22:28 | OPR ---
Date/Time of Note Date/Time of Note DATE: 05/28/18 TIME: 22:12 Operative Report Procedure Date: May 28, 2018 Preoperative Diagnosis Left minimally displaced subcapital femoral neck fracture Left proximal humerus fracture Left comminuted intra-articular distal humerus fracture Postoperative Diagnosis As above Operation/Procedure Performed Percutaneous screw fixation of left femoral neck fracture Long-arm splint to left distal humerus fracture Surgeon see signature line [employer] None Anesthesia Type: general, spinal Estimated Blood Loss: 50 - 100 ml's Transfusion none Specimen None Grafts/Implants Missael 6.5 and 8.0 cannulated partially threaded screws Complications none Pt Condition Post Procedure: stable Disposition: PACU Procedure Description Indications and consent: Joana Dozier is a 62-year-old female who was transferred to the hospital from outside facility and was found to have a left proximal humerus fracture, severely comminuted intra-articular left distal humerus fracture, and left minimally displaced subcapital femoral neck fracture. She did have an abrasion over the elbow, it was not an open fracture. The patient was neurovascularly intact in all 4 extremities. After evaluating the patient I discussed with her that the distal humerus fracture was extremely complicated and would require care from a fellowship trained elbow surgeon. I recommended transfer to hospital where a fellowship trained elbow surgeon was available. The primary team and case management began the transfer process to [facility]. However it may be a few days before she is transferred over there. Therefore I felt it was in the patient's best interest to fix her left femoral neck fracture to allow further mobilization, pain control, ease of care. Given the nondisplaced nature of the fracture recommended percutaneous screw fixation of the left subcapital femoral neck fracture. I reviewed the benefits and risks with the patient. The risks include but are not limited to complications from anesthesia, pneumonia, cardiopulmonary complications, bleeding, infection, neurovascular injury, wound healing problems, malunion, nonunion, failure of hardware, AVN of the femoral head, and symptomatic hardware. The patient understood these benefits and risks and wished to proceed with surgery. Procedure in detail: The patient was brought to the operating room. Patient was given anesthesia on the hospital bed followed by spinal. Patient was transferred to hospital bed to the operating table in supine position. This was a [place] table. All bony prominences well-padded. Care was taken for left upper extremity secondary to her proximal humerus and distal humerus fractures. Fluoroscopy was used to confirm that both AP and lateral images were obtainable and that the femoral neck fracture remained nondisplaced. Once this was completed patient was prepped and draped in normal sterile fashion. A timeout was performed confirming patient's name medical record number diagnosis procedure to be performed and laterality of procedure. 2 g of Ancef was dosed. At this time fluoroscopy was used to marked out the location of the incision both AP and lateral planes. Approximately 5 cm incision was made along the lateral proximal thigh. Bovie was used to dissect down to the IT band which was then incised with a scalpel. Under fluoroscopy the central inferior pin was placed in such a way that it was central in the neck on the lateral and requiring along the inferior calcar on the AP. Care was taken for the starting point to be above the lesser trochanter. Once the appropriate depth and position was confirmed on AP and lateral the pain guide was used to place both the proximal anterior and posterior pins. Placement was confirmed on AP and lateral films. Depth gauge was then used to measure each respective pin. For the inferior screw an 80mm 8.0 partially threaded screw with washer was placed. Anterior superior screw was initially an 80 mm 8.0 screw with a washer. However the screw length was too long and was penetrating. On the lateral. Therefore it was switched out to a 75 mm 8.0 partially-threaded screw without a washer. The posterior superior screw was an 80 mm 6.5 partially threaded screw with a washer. All 3 screws obtained good purchase. The wound was copiously irrigated with saline. The IT band was closed with #1 Vicryl in [id number] fashion. Followed by deep subcutaneous tissue with 2-0 Vicryl interrupted fashion and subcutaneous tissue with 2-0 Vicryl interrupted fashion. Skin was closed by robyn covered with Mepilex Ag. At this time the original splint from outside hospital was removed from the left upper extremity. The abrasion over the posterior elbow was dressed with Xeroform 4 x 4's and ABD. The arm from wrist to shoulder it was wrapped in soft roll followed by a posterior slab plaster splint. Covered with another layer soft roll and Jerzy bandage. Splint hardened while the arm was kept in appro ximately 70 degrees of flexion in neutral rotation. While the arm was being placed back in the sling the left lower extremity did fall off the operating table. At this time and AP pelvis was ordered to be taken operating room prior to transfer to PACU. X-ray was reviewed in the operating room and no displacement of the fixation was appreciated. Patient was then transferred to the hospital bed and transferred to PACU in stable condition. Disposition: Patient will have Ancef 2 g for 24 hours for prophylaxis. Patient will be weightbearing as tolerated on the left lower extremity. She will remain nonweightbearing left upper extremity. She will need physical therapy for mobilization. She will need DVT prophylaxis which will include SCDs and Lovenox 40 mg daily. We will continue to work on her transfer to another center where appropriate care can be taken care of her left elbow. ABRAHAM ZIMMERMAN MD May 28, 2018 22:28
--- NOTE | 2018-05-28 23:11 | NUR ---
PACU NOTES AWAKE AND ALERT, KEPT COMFORTABLE, SITE CLEAN AND DRY, MOVING BLE (WITNESSED BY BETH BLACKMAN) BUT STILL UNABLE TO LIFT FROM THE BED. ADVISED OF POC
[2018-05-29] VITALS (7 sets, daily range): BP systolic 113–142; BP diastolic 56–77; PULSE 89–111; RESP 16–20
[2018-05-29] MEDS: CEFAZOLIN 2 GM/50 ML (PMX) 50 ML IVPB SCH ×3 (00:20→17:05)
[2018-05-29] MEDS: DULOXETINE 30 MG CAP DR PO SCH (08:44)
[2018-05-29] MEDS: ENOXAPARIN 40 MG/0.4 ML SYG SC SCH (08:46)
[2018-05-29] MEDS: INSULIN ASPART [NOVOLOG] 3 ML PEN SC SCH ×4 (08:47→20:46)
--- NOTE | 2018-05-29 09:17 | PN ---
Date/Time of Note Date/Time of Note DATE: 05/29/18 TIME: 09:17 Assessment/Plan VTE Prophylaxis Risk score (from Nsg)>0 risk: 4 SCD applied (from Nsg): Yes Pharmacological prophylaxis: LMWH Lines/Catheters IV Catheter Type (from Nrsg): Peripheral IV Urinary Cath still in place: No Assessment/Plan Assessment/Plan 1. Left proximal humerus fracture and a closed severely comminuted intra- articular left distal humerus fracture - Orthopedic surgeon, Dr. Gruber, is recommending higher level of care given complexity of fracture. Spoke to CM who reached out to [facility]. Per [facility] ortho, patient will need to follow up as outpatient in clinic for evaluation and will not be accepted as a transfer. When discussed with Dr. Gruber, he emphasized need for elbow to be repaired in the next 1-2 weeks due to severity of fracture and was willing to get in contact with ortho at [facility]. 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 States Dr. Gruber can call the hospital and request via overhead paging to speak with orthopedic surgeon. Request placed for stat appointment with ortho - Pain control and continue arm in sling with nonweight bearing to LUE 2. Left femoral neck fracture s/p repair POD #1 - Ortho on board and consultation appreciated. PT on board and can remove gore after attempts to ambulate 3. h/o depression - patient states she has not been taking Cymbalta since last discharge but helped when on the medication in the past - restarted on Cymbalta 4. Diabetes Mellitus - A1c noted - holding glipizide at this time - ISS and accuchecks 5. Disposition - PT on board for discharge planning - CM on board for assistance with arranging ortho follow up for elbow repair since unable to transfer Result Diagram: 05/29/18 0436 05/29/18 0436 Results 24hrs Laboratory Tests Test 05/28/18 11:51 05/28/18 12:07 05/28/18 12:08 05/28/18 18:05 Bedside Glucose 179 174 White Blood Count 6.3 Red Blood Count 3.67 L Hemoglobin 9.9 L Hematocrit 31.4 L Mean Corpuscular 85.6 Volume Mean Corpuscular 27.0 L Hemoglobin Mean Corpuscular 31.5 L Hemoglobin Concent Red Cell 15.8 H Distribution Width Platelet Count 212 Mean Platelet Volume 9.8 Immature 0.300 Granulocytes % Neutrophils % 70.8 Lymphocytes % 17.1 Monocytes % 10.4 Eosinophils % 0.6 Basophils % 0.8 Nucleated Red Blood 0.0 Cells % Immature 0.020 Granulocytes # Neutrophils # 4.4 Lymphocytes # 1.1 Monocytes # 0.7 Eosinophils # 0.0 Basophils # 0.1 Nucleated Red Blood 0.0 Cells # Prothrombin Time 14.4 Prothrombin Time 1.1 Ratio INR International 1.11 Normalized Ratio Sodium Level 135 Potassium Level 3.9 Chloride Level 98 Carbon Dioxide Level 29 Anion Gap 8 Blood Urea Nitrogen 13 Creatinine 0.59 Est Glomerular > 60 Filtrat Rate mL/min Glucose Level 189 Calcium Level 8.4 Magnesium Level 2.0 Total Bilirubin 0.5 Direct Bilirubin 0.00 Indirect Bilirubin 0.5 Aspartate Amino 22 Transf (AST/SGOT) Alanine 20 Aminotransferase (AL T/SGPT) Alkaline Phosphatase 59 Total Protein 6.8 Albumin 3.4 Globulin 3.40 H Albumin/Globulin 1.00 Ratio Test 05/28/18 22:59 05/29/18 04:36 05/29/18 08:43 Bedside Glucose 164 258 H White Blood Count 7.3 Red Blood Count 3.31 L Hemoglobin 9.1 L Hematocrit 29.3 L Mean Corpuscular 88.5 Volume Mean Corpuscular 27.5 L Hemoglobin Mean Corpuscular 31.1 L Hemoglobin Concent Red Cell 15.5 H Distribution Width Platelet Count 175 Mean Platelet Volume 10.0 Immature 0.400 Granulocytes % Neutrophils % 90.5 H Lymphocytes % 6.7 L Monocytes % 2.3 Eosinophils % 0.0 Basophils % 0.1 Nucleated Red Blood 0.0 Cells % Immature 0.030 Granulocytes # Neutrophils # 6.6 Lymphocytes # 0.5 L Monocytes # 0.2 L Eosinophils # 0.0 Basophils # 0.0 Nucleated Red Blood 0.0 Cells # Sodium Level 141 Potassium Level 4.6 Chloride Level 106 Carbon Dioxide Level 27 Anion Gap 8 Blood Urea Nitrogen 13 Creatinine 0.53 Glucose Level 234 H Calcium Level 8.2 L Phosphorus Level 4.0 Magnesium Level 2.1 Iron Level 34 L Total Iron Binding 258 Capacity Percent Iron 13 L Saturation Albumin 3.3 Subjective 24 Hr Interval Summary Free Text/Dictation Patient complaining of discomfort in LUE and continues to ask what is pushing on her elbow. Explained she has a splint that was placed in the OR on her LUE. Also discussed working with PT given she had her left hip repaired. Exam/Review of Systems Vital Signs Vitals Vital Signs Date Temp Pulse Resp B/P (MAP) Pulse Ox O2 O2 Flow FiO2 Time Delivery Rate 05/29/18 98.6 89 16 142/72 97 07:56 (95) 05/29/18 Venturi 2.0 03:27 Mask Intake and Output 05/28/18 05/28/18 05/29/18 1515:00 23:00 07:00 IntakeIntake Total 2500 ml 170 ml OutputOutput Total 100 ml 400 ml BalanceBalance 2400 ml -230 ml Exam General: Patient is currently lying in bed, distress with movement of left arm Neck: Supple Lungs: Clear to auscultation bilaterally no crackles rales or wheezing Heart: Normal S1-S2, Regular rhythm and rate. No murmur, S3, or S4 Abdomen: Soft , nontender, nondistended , bowel sounds are present. No guarding no rebound tenderness Extremities: left upper extremity in sling with kerlix around limb. left hip dressing in place Medications Medications Current Medications IV Flush (NS 3 ml) 3 ml PER PROTOCOL IV ; Start 05/27/18 at 23:30 Ondansetron HCl (Zofran Inj) 4 mg Q6H PRN IV NAUSEA AND/OR VOMITING; Start 05/27/18 at 23:30 Acetaminophen (Tylenol Tab) 650 mg Q6H PRN PO PAIN LEVEL 1-3 OR FEVER Last administered on 05/28/18at 02:56; Admin Dose 650 MG; Start 05/27/18 at 23:30 Acetaminophen/ Hydrocodone Bitart (Winifrede (5/325)) 1 tab Q6H PRN PO PAIN LEVEL 4-6 Last administered on 05/28/18at 00:26; Admin Dose 1 TAB; Start 05/27/18 at 23:30 Acetaminophen/ Hydrocodone Bitart (Winifrede (5/325)) 2 tab Q6H PRN PO PAIN LEVEL 7-10 Last administered on 05/28/18at 15:41; Admin Dose 2 TAB; Start 05/27/18 at 23:30 Docusate Sodium (Colace) 100 mg Q12H PRN PO CONSTIPATION; Start 05/27/18 at 23:30 Bisacodyl (Dulcolax) 5 mg DAILY PRN PO CONSTIPATION; Start 05/27/18 at 23:30 Insulin Aspart (Novolog Insulin Pen) NOVOLOG *MILD* ALGORITHM WITH MEALS BEDTIME SC Last administered on 05/29/18at 08:47; Admin Dose 3 UNIT; Start 05/28/18 at 08:00 Miscellaneous Information 1 ea NOTE XX ; Start 05/28/18 at 04:30 Glucose (Glutose) 15 gm Q15M PRN PO DECREASED GLUCOSE; Start 05/28/18 at 04:30 Glucose (Glutose) 22.5 gm Q15M PRN PO DECREASED GLUCOSE; Start 05/28/18 at 04:30 Dextrose (D50w Syringe) 25 ml Q15M PRN IV DECREASED GLUCOSE; Start 05/28/18 at 04:30 Dextrose (D50w Syringe) 50 ml Q15M PRN IV DECREASED GLUCOSE; Start 05/28/18 at 04:30 Glucagon (Glucagen) 1 mg Q15M PRN IM DECREASED GLUCOSE; Start 05/28/18 at 04:30 Glucose (Glutose) 15 gm Q15M PRN BUCCAL DECREASED GLUCOSE; Start 05/28/18 at 04:30 Lorazepam (Ativan) 1 mg Q2H PRN IV withdrawal, anxiety, agitation; Start 05/28/18 at 11:30 Duloxetine HCl (Cymbalta) 30 mg DAILY PO Last administered on 05/29/18at 08:44; Admin Dose 30 MG; Start 05/28/18 at 11:30 Morphine Sulfate (morphine) 2 mg Q4H PRN IV PAIN LEVEL 7-10 Last administered on 05/28/18at 13:25; Admin Dose 2 MG; Start 05/28/18 at 13:30 Naloxone HCl (Narcan) 0.2 mg Q2M PRN IV OPIATE OVERDOSE; Start 05/28/18 at 20:00 Miscellaneous Information (* Miscellaneous Pharmacy Order) DURAMORPH: 0.2 MG SPI... GIVEN NEURAXIAL XX ; Start 05/28/18 at 20:00 Cefazolin Sodium/ Dextrose 50 ml @ 100 mls/hr Q8H IVPB Last administered on 05/29/18at 08:44; Admin Dose 100 MLS/HR; Start 05/29/18 at 00:30; Stop 05/29/18 at 16:59 Enoxaparin Sodium (Lovenox) 40 mg DAILY SC Last administered on 05/29/18at 08:46; Admin Dose 40 MG; Start 05/29/18 at 09:00 VALERY LI MD May 29, 2018 09:17
--- NOTE | 2018-05-29 10:10 | NUR ---
PT EVALUATION NOTE: Patient is a 62 year old female transferred to [facility] from [facility] after she had sustained a ground-level fall. Patient underwent a percutaneous screw fixation of the L femoral neck fracture and application of a long arm splint to L distal humerus fx on 05/28/18. PMH: depression, DM PRECAUTIONS: fall risk, WBAT LLE, NWB LUE PLOF: Patient states that she lives mostly in motels and hotels. Patient states that prior to hospitalization she was independent with all functional mobility without an assistive device. CLOF: Pina CAMPOS cleared patient for PT evaluation. Patient agreeable to participate with PT evaluation after some encouragement. Received patient in semi-supine position in bed, LUE in sling. VS as follows: BP 124/70, HR 88, O2 sat 98% on supplemental O2 via NC @ 4 l/min. Patient educated in safety awareness, fall prevention, purpose of PT evaluation and WB precautions of WBAT LLE and NWB LUE. Patient required mod/max assist of 2 people to come to sitting position at the EOB. Patient able to tolerate sitting at the EOB for 5 minutes, required mod assist to maintain sitting at the EOB. Patient returned to supine with mod/max assist of 2 people. Patient positioned for comfort, all needs met, call light within reach, bed alarm reset. Pina CAMPOS notified of patient's status at the end of the session. PT RECOMMENDATIONS: Patient will benefit from skilled inpatient PT intervention to address strength, balance, safety and functional mobility. Recommend D/C to ARU vs SNF for continued rehab once cleared by . DME needs to be determined based on discharge disposition.
[2018-05-29] MEDS: FERROUS SULFATE (EC) 325 MG TAB PO SCH (10:25)
--- NOTE | 2018-05-29 11:04 | NUR ---
CASE MANAGEMENT NOTE UPDATE THIS CM RECEIVED A CALL FOR ROSA AT [facility] AND PER HER,SHE REQUESTED OR REPORT AND IT WAS FAXED TO HER AT [phone] SHE CALLED AGAIN AND STATED THAT SHE S/W ORTHO AT HER FACILITY IN REGARD TO THE CASE AND PER ORTHO PT WILL NEED TO FOLLOW UP OUTPATIENT REFERRAL WILL NEED TO BE MADE TO [address] [place] [address] CARE AND ASK FOR THE [facility], THIS CM UPDATED MD LI. PATO BELTRAN RN,[facility] EXT [id number]
--- NOTE | 2018-05-29 13:36 | PN ---
Date/Time of Note Date/Time of Note DATE: 05/29/18 TIME: 13:33 Assessment/Plan Lines/Catheters IV Catheter Type (from Nrsg): Peripheral IV Real in Place (from Nrsg): No Assessment/Plan Chief Complaint/Hosp Course This is a 62-year-old female postop day #1 status post percutaneous screw fixation of left femoral neck fracture. From that standpoint she is doing well. Primary team and case management still working on transfer to higher level of care for severely comminuted intra-articular left distal humerus fracture and ipsilateral left proximal humerus fracture. -Post op H&H stable -PT/OT. Weightbearing as tolerated left lower extremity. Nonweightbearing left upper extremity -DVT prophylaxis: SCD's, Lovenox 40 mg daily times 6 weeks -Post-op XR ordered -Abx: 24h vanc/ancef -Diet: ADAT -Real: DC'd after physical therapy today versus tomorrow morning -Discharge planning consult to transfer patient to higher level of care for evaluation and treatment of left upper extremity fractures. Subjective 24 Hr Interval Summary Patient doing well No acute events overnight Pain is moderately controlled Exam/Review of Systems Vital Signs Vitals Vital Signs Date Temp Pulse Resp B/P (MAP) Pulse Ox O2 O2 Flow FiO2 Time Delivery Rate 05/29/18 98.6 89 16 142/72 97 07:56 (95) 05/29/18 Venturi 2.0 03:27 Mask Intake and Output 05/28/18 05/28/18 05/29/18 1515:00 23:00 07:00 IntakeIntake Total 2500 ml 170 ml OutputOutput Total 100 ml 400 ml BalanceBalance 2400 ml -230 ml Exam Free Text/Dictation MUSCULOSKELETAL: Left upper extremity: Long-arm splint intact. Sensation intact to light touch in a median, ulnar, radial, and axillary distribution. Motor is intact in a median, ulnar, radial, anterior interosseous, and posterior interosseous nerve distribution. Radial and ulnar artery are +2. Wrist extension and flexion are intact. Compartments are soft. Left lower extremity: Dressing: clean, dry, and intact, no erythema Sensation intact to light touch in a sural, saphenous, deep peroneal, superficial peroneal, medial and lateral plantar nerve distribution. Motor is in tact, patient able to dorsiflex and plantarflex ankle and extend and flex great toe. Dorsalis Pedis pulse +2, Brisk capillary refill. Compartments are soft. Calves non-tender to palpation bilaterally. Results Result Diagram: 05/29/18 0436 05/29/18 0436 ABRAHAM ZIMMERMAN MD May 29, 2018 13:36
--- NOTE | 2018-05-29 14:22 | NUR ---
PT NOTE: Attempted to see patient for p.m. PT treatment. Patient declining to participate with PT at this time, states that she has not eaten her lunch, has just been resting in bed. Pina CAPMOS notified, will follow up tomorrow.
--- NOTE | 2018-05-29 17:00 | NUR ---
CM NOTES: TRANSFERRED FROM TELE TO MED/SURG. PT IS HOMELESS AND DR LI WAS INFORMED THAT [facility] SAID NO TO SURGERY AND SAID IT SHOULD BE OUTPT. HOWEVER, CANNOT SET UP OUTPT APPOINTMENT WITH ORTHO BECAUSE PT WILL NEED SNF PLACEMENT. NEED ORDER FOR SNF PLACEMENT [facility] ANN MARIE GARCIA LEAD CM [phone]
[2018-05-29] MEDS: morphine 4 MG/ML VIAL IV PRN (17:04)
--- NOTE | 2018-05-29 18:46 | NUR ---
END OF SHIFT NOTE: Pt with complaints of shoulder and arm pain throughout shift, IV morphine given x1. Real intact, draining clear yellow urine. Pt remains on 2L O2 nasal cannula. Pt tolerating regular diet, AccuCheck done ACHS, insulin given per policy. PT worked with pt in AM, pt refused afternoon session. VSS, call siddiqui within reach, hourly rounding maintained.
[2018-05-29] MEDS: HYDROCODONE/APAP (5/325) TAB PO PRN (19:41)
[2018-05-30] MEDS: HYDROCODONE/APAP (5/325) TAB PO PRN ×3 (00:37→18:05)
[2018-05-30 00:42] VITALS: BP 142/62; PULSE 95; RESP 17
--- NOTE | 2018-05-30 06:38 | NUR ---
NRSG NOTE: PT IN BED, ASLEEP, EASILY AROUSED. AOX4. NO ACUTE DISTRESS NOTED. NO SOB. VSS. PAIN MGMT EFFECTIVE. L HIP INCISION DRSG CDI. LUE SLING+SPLINT OBSERVED. RT HAND IV INTACT+PATENT, HL. PT RESTING COMFORTABLY. REPEAT H/H AT 8AM.
[2018-05-30 07:19] VITALS: BP 117/62; PULSE 88; RESP 18
[2018-05-30] MEDS: morphine 4 MG/ML VIAL IV PRN (08:00)
[2018-05-30] MEDS: DULOXETINE 30 MG CAP DR PO SCH (08:05)
[2018-05-30] MEDS: FERROUS SULFATE (EC) 325 MG TAB PO SCH (08:05)
[2018-05-30] MEDS: ENOXAPARIN 40 MG/0.4 ML SYG SC SCH (08:14)
[2018-05-30] MEDS: INSULIN ASPART [NOVOLOG] 3 ML PEN SC SCH ×4 (08:48→21:00)
--- NOTE | 2018-05-30 09:13 | PN ---
Date/Time of Note Date/Time of Note DATE: 05/30/18 TIME: 09:13 Assessment/Plan VTE Prophylaxis Risk score (from Nsg)>0 risk: 8 SCD applied (from Nsg): Yes Pharmacological prophylaxis: LMWH Lines/Catheters IV Catheter Type (from Nrsg): Peripheral IV Urinary Cath still in place: No Assessment/Plan Assessment/Plan 1. Left proximal humerus fracture and a closed severely comminuted intra- articular left distal humerus fracture - CM still working on appointment as outpatient for ortho follow up - Orthopedic surgeon, Dr. Gruber, is recommending higher level of care given co mplexity of fracture. Spoke to CM who reached out to [facility]. Per [facility] [[email or web address]] ortho, patient will need to follow up as outpatient in clinic for evaluation and will not be accepted as a transfer. When discussed with Dr. Gruber, he emphasized need for elbow to be repaired in the next 1-2 weeks due to severity of fracture and was willing to get in contact with ortho at [facility] [[email or web address] requested a contact number for orthopedic surgeon professional development instructor or transfer line for MD to MD but Toyin BENITEZ at [facility] refused to provide. States Dr. Gruber can call the hospital and request via overhead paging to speak with orthopedic surgeon. Request placed for stat appointment with ortho - Pain control and continue arm in sling with non weight bearing to LUE 2. Left femoral neck fracture s/p repair POD #1 - Ortho on board and consultation appreciated. - PT on board 3. h/o depression - patient states she has not been taking Cymbalta since last discharge but helped when on the medication in the past - restarted on Cymbalta 4. Diabetes Mellitus - A1c noted - holding glipizide at this time - ISS and accuchecks 5. Disposition - PT on board for discharge planning - CM on board for assistance with arranging ortho follow up for elbow repair since unable to transfer Result Diagram: 05/30/18 0744 05/30/18 0428 Results 24hrs Laboratory Tests Test 05/29/18 12:53 05/29/18 18:06 05/29/18 20:05 05/30/18 04:28 Bedside Glucose 188 143 150 White Blood Count 8.6 Red Blood Count 3.13 L Hemoglobin 8.5 L Hematocrit 27.5 L Mean Corpuscular 87.9 Volume Mean Corpuscular 27.2 L Hemoglobin Mean Corpuscular 30.9 L Hemoglobin Concent Red Cell 16.2 H Distribution Width Platelet Count 190 Mean Platelet Volume 10.7 H Immature 0.500 H Granulocytes % Neutrophils % 76.1 Lymphocytes % 14.8 L Monocytes % 7.5 Eosinophils % 0.6 Basophils % 0.5 Nucleated Red Blood 0.0 Cells % Immature 0.040 H Granulocytes # Neutrophils # 6.5 Lymphocytes # 1.3 Monocytes # 0.6 Eosinophils # 0.1 Basophils # 0.0 Nucleated Red Blood 0.0 Cells # Sodium Level 139 Potassium Level 3.8 Chloride Level 101 Carbon Dioxide Level 31 Anion Gap 7 Blood Urea Nitrogen 15 Creatinine 0.46 Glucose Level 176 Calcium Level 8.1 L Phosphorus Level 2.6 Magnesium Level 2.0 Albumin 2.9 L Test 05/30/18 07:44 05/30/18 08:12 Hemoglobin 8.5 L Hematocrit 27.2 L Bedside Glucose 185 Subjective 24 Hr Interval Summary Free Text/Dictation Patient denies any acute issues. States pain is improving but was hesitant with physical therapist today out of fear. Exam/Review of Systems Vital Signs Vitals Vital Signs Date Temp Pulse Resp B/P (MAP) Pulse Ox O2 O2 Flow FiO2 Time Delivery Rate 05/30/18 98.9 88 18 117/62 97 Nasal 07:19 (80) Cannula 05/29/18 2.0 03:27 Intake and Output 05/29/18 05/29/18 05/30/18 1414:59 22:59 06:59 IntakeIntake Total 410 ml 590 ml OutputOutput Total 450 ml BalanceBalance 410 ml 140 ml Exam General: Patient is currently lying in bed, distress with movement of left arm Neck: Supple Lungs: Clear to auscultation bilaterally no crackles rales or wheezing Heart: Normal S1-S2, Regular rhythm and rate. No murmur, S3, or S4 Abdomen: Soft , nontender, nondistended , bowel sounds are present. No guarding no rebound tenderness Extremities: left upper extremity in sling with Kerlix around limb. left hip dressing in place Medications Medications Current Medications IV Flush (NS 3 ml) 3 ml PER PROTOCOL IV ; Start 05/27/18 at 23:30 Ondansetron HCl (Zofran Inj) 4 mg Q6H PRN IV NAUSEA AND/OR VOMITING; Start 05/27/18 at 23:30 Acetaminophen (Tylenol Tab) 650 mg Q6H PRN PO PAIN LEVEL 1-3 OR FEVER Last administered on 05/28/18at 02:56; Admin Dose 650 MG; Start 05/27/18 at 23:30 Acetaminophen/ Hydrocodone Bitart ([place] (5/325)) 1 tab Q6H PRN PO PAIN LEVEL 4-6 Last administered on 05/29/18at 19:41; Admin Dose 1 TAB; Start 05/27/18 at 23:30 Acetaminophen/ Hydrocodone Bitart ([place] (5/325)) 2 tab Q6H PRN PO PAIN LEVEL 7-10 Last administered on 05/30/18at 09:03; Admin Dose 2 TAB; Start 05/27/18 at 23:30 Docusate Sodium (Colace) 100 mg Q12H PRN PO CONSTIPATION; Start 05/27/18 at 23:30 Bisacodyl (Dulcolax) 5 mg DAILY PRN PO CONSTIPATION; Start 05/27/18 at 23:30 Insulin Aspart (Novolog Insulin Pen) NOVOLOG *MILD* ALGORITHM WITH MEALS BEDTIME SC Last administered on 05/30/18at 08:48; Admin Dose 2 UNIT; Start 05/28/18 at 08:00 Miscellaneous Information 1 ea NOTE XX ; Start 05/28/18 at 04:30 Glucose (Glutose) 15 gm Q15M PRN PO DECREASED GLUCOSE; Start 05/28/18 at 04:30 Glucose (Glutose) 22.5 gm Q15M PRN PO DECREASED GLUCOSE; Start 05/28/18 at 04:30 Dextrose (D50w Syringe) 25 ml Q15M PRN IV DECREASED GLUCOSE; Start 05/28/18 at 04:30 Dextrose (D50w Syringe) 50 ml Q15M PRN IV DECREASED GLUCOSE; Start 05/28/18 at 04:30 Glucagon (Glucagen) 1 mg Q15M PRN IM DECREASED GLUCOSE; Start 05/28/18 at 04:30 Glucose (Glutose) 15 gm Q15M PRN BUCCAL DECREASED GLUCOSE; Start 05/28/18 at 04:30 Lorazepam (Ativan) 1 mg Q2H PRN IV withdrawal, anxiety, agitation Last administered on 05/29/18at 19:41; Admin Dose 1 MG; Start 05/28/18 at 11:30 Duloxetine HCl (Cymbalta) 30 mg DAILY PO Last administered on 05/30/18 08:05; Admin Dose 30 MG; Start 05/28/18 at 11:30 Morphine Sulfate (morphine) 2 mg Q4H PRN IV PAIN LEVEL 7-10 Last administered on 05/30/18 08:00; Admin Dose 2 MG; Start 05/28/18 at 13:30 Naloxone HCl (Narcan) 0.2 mg Q2M PRN IV OPIATE OVERDOSE; Start 05/28/18 at 20:00 Miscellaneous Information (* Miscellaneous Pharmacy Order) DURAMORPH: 0.2 MG SPI... GIVEN NEURAXIAL XX ; Start 05/28/18 at 20:00 Enoxaparin Sodium (Lovenox) 40 mg DAILY SC Last administered on 05/30/18 08:14; Admin Dose 40 MG; Start 05/29/18 at 09:00 Ferrous Sulfate (Ferrous Sulfate (Ec)) 325 mg DAILY PO Last administered on 05/30/18 08:05; Admin Dose 325 MG; Start 05/29/18 at 09:30 VALERY LI MD May 30, 2018 09:13
--- NOTE | 2018-05-30 11:10 | NUR ---
PT NOTE [facility] Patient: Joana Dozier : 1955 Age/Sex: 62/F Unit#: [id number] Room/Bed: [facility]/A User: Lamar Rosen PTA Date: 05/30/18 11:10 Type: PT Technical Record Therapy day number 2 Subjective Current complaint of pain Pain Scale FACES Pain Intensity 10 (0-10) Patient Stated Goal for Pain Relief 0 (0-10) Pain Level Comment LUE Exercise Assessment Label Bilat Lower Extremity Exercise Type Active ROM Additional Exercise Comments APs, heel slides, hip abd/add Exercise Start Time 10:32 Exercise End Time 10:47 Total Exercise Time 15 min (8-127) Transfer Training Start Time 10:47 Supine to Sit Maximum Assist Transfer Sit to Stand Ability Maximum Assist Bed Mobility Sit to Supine Maximum Assist Additional Mobility Comments Attempted STSx3 Transfer Training End Time 11:10 Total Transfer Training Time 23 min (8-127) Static Sitting Balance Fair Dynamic Sitting Balance Fair minus Standing Static Balance Poor Safety Judgement Fair Activity Tolerance Poor Equipment Present Real Catheter Additional Equipment Present LUE sling, 4LO2 viaNC Post Treatment Pain Intensity 10 0-10 Total Treament Time 38 min (8-127) Total Minutes 38 Total Units 3 PT Technical Record Comment S: BETH Villarreal cleared pt for PT. Pt c/o 10/10 LUE pain and required max encouragement to participate in PT activities O: Received pt sleeping in semifowler. VC/TC to rouse. Performed AAROME in semifowler; see technical record for therapeutic exercises. MaxA x2PA mobility and sit to stand w/ FWW. Attempted sit to stand x3 however pt unable to stand d/t increasing LUE pain. Returned pt back to bed per pt request. Positioned pt to comfort in semifowler. SCD's on. Needs met. Bed alarm on A: Poor tolerance to tx. Pt unable to progress to sit to stand/gait due to LUE pain. Pt is very anxious and fearful P: Continue w/ POC and progress as tolerated.
--- NOTE | 2018-05-30 11:35 | NUR ---
REPORT GIVEN TO OMKAR CAMPOS TO CONTINUE PLAN OF CARE.
--- NOTE | 2018-05-30 14:25 | NUR ---
PT NOTE BETH Vanegas cleared pt for PT. Attempted to see pt however pt refused. Educated pt on benefits and importance of PT and OOB activity, and despite max encouragement from this therapist pt adamantly refused. Stated, "What don't you people understand? I need to rest. I am in so much pain. I moved earlier and I can't move." Attempted to perform therapeutic exercises and pt continued to refuse stating, "I said I can't move. Don't move me." Respected pt's wishes. Will f/u if time permits
[2018-05-30 15:34] VITALS: BP 142/74; PULSE 94; RESP 16
--- NOTE | 2018-05-30 19:26 | NUR ---
RN NOTES: Patient is alert and oriented x4, able to make needs known; PRN Lund given as needed for pain with minimal effectiveness noted; no SOB/respiratory distress noted this shift; dressing to left hip incision is clean, dry and intact; arm sling and splint with felisha wrap to left arm is in place; with Real catheter patent and draining well; no episode of hypo/hyperglycemia noted this shift, insulin given as ordered; patient refused PT this afternoon; kept comfortable; call light placed within reached; all needs attended.
--- NOTE | 2018-05-30 19:29 | PN ---
Date/Time of Note Date/Time of Note DATE: 05/30/18 TIME: 19:28 Assessment/Plan Lines/Catheters IV Catheter Type (from Nrsg): Saline Lock Real in Place (from Nrsg): Yes Assessment/Plan Chief Complaint/Hosp Course This is a 62-year-old female postop day #2 status post percutaneous screw fixation of left femoral neck fracture. From that standpoint she is doing well. Primary team and case management still working on transfer to higher level of care for severely comminuted intra-articular left distal humerus fracture and ipsilateral left proximal humerus fracture. -Post op H&H stable -PT/OT. Weightbearing as tolerated left lower extremity. Nonweightbearing left upper extremity -DVT prophylaxis: SCD's, Lovenox 40 mg daily times 6 weeks -Post-op XR ordered -Abx: 24h vanc/ancef -Diet: ADAT -Discharge planning consult most likely DC to SNF and then transfer to higher level of care JOSEPHINE for evaluation and treatment of left upper extremity fractures. Subjective 24 Hr Interval Summary Patient doing well No acute events overnight Pain is well controlled Exam/Review of Systems Vital Signs Vitals Vital Signs Date Temp Pulse Resp B/P (MAP) Pulse Ox O2 O2 Flow FiO2 Time Delivery Rate 05/30/18 98.9 94 16 142/74 96 Nasal 15:34 (96) Cannula 05/29/18 2.0 03:27 Intake and Output 05/29/18 05/29/18 05/30/18 1515:00 23:00 07:00 IntakeIntake Total 410 ml 590 ml OutputOutput Total 450 ml BalanceBalance 410 ml 140 ml Exam Free Text/Dictation MUSCULOSKELETAL: Left upper extremity: Long-arm splint intact. Sensation intact to light touch in a median, ulnar, radial, and axillary distribution. Motor is intact in a median, ulnar, radial, anterior interosseous, and posterior interosseous nerve distribution. Radial and ulnar artery are +2. Wrist extension and flexion are intact. Compartments are soft. Left lower extremity: Dressing: clean, dry, and intact, no erythema Sensation intact to light touch in a sural, saphenous, deep peroneal, superficial peroneal, medial and lateral plantar nerve distribution. Motor is intact, patient able to dorsiflex and plantarflex ankle and extend and flex great toe. Dorsalis Pedis pulse +2, Brisk capillary refill. Compartments are soft. Calves non-tender to palpation bilaterally. Results Result Diagram: 05/30/18 0744 05/30/18 0428 ABRAHAM ZIMMERMAN MD May 30, 2018 19:29
[2018-05-30 19:48] VITALS: BP 146/75; PULSE 96; RESP 20
--- NOTE | 2018-05-30 19:58 | RADRPT ---
Vent Rate: 90 bpm RR Interval: 0 msec [place] Interval: 124 msec QRS Duration: 92 msec QT Interval: 382 msec QTC Interval: 467 msec P-R-T [place]: 61 - -30 - 64 degrees Normal sinus rhythm Left axis deviation Moderate voltage criteria for LVH, may be normal variant Cannot rule out Septal infarct , age undetermined Abnormal ECG Electronically Signed By: Tej Chawla [id number]
[2018-05-31] MEDS: morphine 4 MG/ML VIAL IV PRN (01:18)
[2018-05-31 02:51] VITALS: BP 140/71; PULSE 91
[2018-05-31] MEDS: HYDROCODONE/APAP (5/325) TAB PO PRN ×2 (03:52→17:06)
--- NOTE | 2018-05-31 06:30 | NUR ---
EOSS Patient alert,oriented able to sleep thought the night. Pain controlled with Henderson and Morphine. Dressing on the left hip was CDI with a good CMS on BLE. Left shoulder with a sling. FC inplaced patent with adequate amount of urine. Tolerating carb controlled diet. All hneeds attended, assisted in repositioning, call light is within reach.
[2018-05-31] MEDS: INSULIN ASPART [NOVOLOG] 3 ML PEN SC SCH ×4 (07:50→21:26)
[2018-05-31 08:22] VITALS: BP 136/70; PULSE 88; RESP 18
[2018-05-31] MEDS: DULOXETINE 30 MG CAP DR PO SCH (08:39)
[2018-05-31] MEDS: FERROUS SULFATE (EC) 325 MG TAB PO SCH (08:39)
[2018-05-31] MEDS: ENOXAPARIN 40 MG/0.4 ML SYG SC SCH (08:41)
--- NOTE | 2018-05-31 09:54 | NUR ---
PT NOTE [facility] Patient: Joana Dozier : 1955 Age/Sex: 62/F Unit#: [id number] Room/Bed: [facility]/A User: Lamar Rosen PTA Date: 05/31/18 09:54 Type: PT Technical Record Therapy day number 3 Subjective Current complaint of pain Pain Scale FACES Pain Intensity 10 (0-10) Patient Stated Goal for Pain Relief 0 (0-10) Pain Level Comment LLE/LUE Exercise Assessment Label Bilat Lower Extremity Exercise Type Active ROM Additional Exercise Comments APs, heel slides, hip abd/add Exercise Start Time 09:16 Exercise End Time 09:31 Total Exercise Time 15 min (8-127) Transfer Training Start Time 09:31 Supine to Sit Maximum Assist Bed Mobility Sit to Supine Maximum Assist Additional Mobility Comments refused sit to stand Transfer Training End Time 09:54 Total Transfer Training Time 23 min (8-127) Static Sitting Balance Fair Dynamic Sitting Balance Fair minus Safety Judgement Fair Activity Tolerance Poor Equipment Present Real Catheter Additional Equipment Present LUE sling, 4LO2 Post Treatment Pain Intensity 10 0-10 Total Treament Time 38 min (8-127) Total Minutes 38 Total Units 3 PT Technical Record Comment S: BETH March cleared pt for PT. Pt c/o 1010 LLE/LUE pain, however agreeable to tx O: Received pt sleeping in semifowler. MaxA x2PA for mobility. Performed AROME in semifowler; see technical record for therapeutic exercises. Attempted to stand however pt refused d/t increasing pain. Returned pt back to bed per pts request. Positioned p to comfort in semifowler. Call light/phone within reach. SCD's on. Needs met. A: Poor tolerance to tx. Limited due to increasing pain. Pt requires max encouragement to participate in PT activities P: Continue w/ POC and progress as tolerated
--- NOTE | 2018-05-31 11:39 | PN ---
Date/Time of Note Date/Time of Note DATE: 05/31/18 TIME: 11:39 Assessment/Plan VTE Prophylaxis Risk score (from Nsg)>0 risk: 4 SCD applied (from Nsg): Yes Pharmacological prophylaxis: LMWH Lines/Catheters IV Catheter Type (from Nrsg): Saline Lock Urinary Cath still in place: Yes Reason Cath still needed: terminal illness/intractable pain Assessment/Plan Assessment/Plan 1. Left proximal humerus fracture and a closed severely comminuted intra-art icular left distal humerus fracture - Discussed with CM patient will need accepting SNF prior to being able to get her an appointment with ortho as outpatient. Currently working on facility - Orthopedic surgeon, Dr. Gruber, is recommending higher level of care given complexity of fracture. Spoke to CM who reached out to [facility]. Per [facility] ortho, patient will need to follow up as outpatient in clinic for evaluation and will not be accepted as a transfer. When discussed with Dr. Gruber, he emphasized need for elbow to be repaired in the next 1-2 weeks due to severity of fracture and was willing to get in contact with ortho at [facility]. requested a contact number for orthopedic surgeon electrical construction project manager or transfer line for MD to MD but Toyin BENITEZ at [facility] refused to provide. States Dr. Gruber can call the hospital and request via overhead paging to speak with orthopedic surgeon. Request placed for stat appointment with ortho - Pain control and continue arm in sling with non weight bearing to LUE 2. Left femoral neck fracture s/p repair on 05/28/18 - Ortho on board and consultation appreciated. - PT on board 3. h/o depression - patient states she has not been taking Cymbalta since last discharge but helped when on the medication in the past - restarted on Cymbalta 4. Diabetes Mellitus - A1c noted - holding glipizide at this time - ISS and accuchecks 5. Disposition - CM on board for SNF placement and arranging for ortho follow up as outpatient for elbow repair Result Diagram: 05/31/18 0456 05/30/18 0428 Results 24hrs Laboratory Tests Test 05/30/18 12:54 05/30/18 17:58 05/30/18 21:05 05/31/18 04:56 Bedside Glucose 128 143 135 White Blood Count 5.9 # Red Blood Count 3.34 L Hemoglobin 9.1 L Hematocrit 29.1 L Mean Corpuscular 87.1 Volume Mean Corpuscular 27.2 L Hemoglobin Mean Corpuscular 31.3 L Hemoglobin Concent Red Cell 15.7 H Distribution Width Platelet Count 246 # Mean Platelet Volume 10.1 Immature 0.300 Granulocytes % Neutrophils % 71.9 Lymphocytes % 15.3 Monocytes % 8.7 Eosinophils % 3.1 Basophils % 0.7 Nucleated Red Blood 0.7 H Cells % Immature 0.020 Granulocytes # Neutrophils # 4.2 Lymphocytes # 0.9 Monocytes # 0.5 Eosinophils # 0.2 Basophils # 0.0 Nucleated Red Blood 0.0 Cells # Test 05/31/18 08:38 Bedside Glucose 129 Subjective 24 Hr Interval Summary Free Text/Dictation Patient gets very defensive when asked questions but states pain is improving. Not working well with physical therapy out of fear and has been drowsy as well. Exam/Review of Systems Exam Vitals Vital Signs Date Temp Pulse Resp B/P (MAP) Pulse Ox O2 O2 Flow FiO2 Time Delivery Rate 05/31/18 98.0 88 18 136/70 92 Room Air 08:22 (92) 05/29/18 2.0 03:27 Intake and Output 05/30/18 05/30/18 05/31/18 1515:00 23:00 07:00 IntakeIntake Total 520 ml 220 ml 500 ml OutputOutput Total 600 ml 1200 ml 1400 ml BalanceBalance -80 ml -980 ml -900 ml physical exam General: Patient is currently lying in bed, distress with movement of left arm Neck: Supple Lungs: Clear to auscultation bilaterally no crackles rales or wheezing Heart: Normal S1-S2, Regular rhythm and rate. No murmur, S3, or S4 Abdomen: Soft , nontender, nondistended , bowel sounds are present. No guarding no rebound tenderness Extremities: left upper extremity in sling with Kerlix around limb. left hip dressing in place Results Results 24hrs Laboratory Tests Test 05/30/18 12:54 05/30/18 17:58 05/30/18 21:05 05/31/18 04:56 Bedside Glucose 128 143 135 White Blood Count 5.9 # Red Blood Count 3.34 L Hemoglobin 9.1 L Hematocrit 29.1 L Mean Corpuscular 87.1 Volume Mean Corpuscular 27.2 L Hemoglobin Mean Corpuscular 31.3 L Hemoglobin Concent Red Cell 15.7 H Distribution Width Platelet Count 246 # Mean Platelet Volume 10.1 Immature 0.300 Granulocytes % Neutrophils % 71.9 Lymphocytes % 15.3 Monocytes % 8.7 Eosinophils % 3.1 Basophils % 0.7 Nucleated Red Blood 0.7 H Cells % Immature 0.020 Granulocytes # Neutrophils # 4.2 Lymphocytes # 0.9 Monocytes # 0.5 Eosinophils # 0.2 Basophils # 0.0 Nucleated Red Blood 0.0 Cells # Test 05/31/18 08:38 Bedside Glucose 129 VALERY LI MD May 31, 2018 11:39
--- NOTE | 2018-05-31 14:20 | NUR ---
PT NOTE [facility] Patient: Joana Dozier : 1955 Age/Sex: 62/F Unit#: [id number] Room/Bed: 408/A User: Lamar Rosen PTA Date: 05/31/18 14:20 Type: PT Technical Record Therapy day number 3 Subjective Current complaint of pain Pain Scale NUMERIC Pain Intensity 10 (0-10) Patient Stated Goal for Pain Relief 0 (0-10) Pain Level Comment LUE/LLE Transfer Training Start Time 13:35 Supine to Sit Maximum Assist Transfer Sit to Stand Ability Maximum Assist Bed Mobility Sit to Supine Maximum Assist Additional Mobility Comments STS x1 Transfer Training End Time 14:20 Total Transfer Training Time 45 min (8-127) Static Sitting Balance Fair Dynamic Sitting Balance Fair minus Standing Static Balance Poor Safety Judgement Fair Activity Tolerance Poor Equipment Present Real Catheter Additional Equipment Present LUE sling, 4LO2 Post Treatment Pain Intensity 10 0-10 Total Treament Time 45 min (8-127) Total Minutes 45 Total Units 3 PT Technical Record Comment S: BETH March cleared pt for PT. Pt c/o 10/10 LUE/LLE pain, however agreeable to tx after max encouragement from this therapist O: Received pt in semifowler. Pt c/o intense pain. MaxA x2PA mobility and sit to stand. Pt unable to stand d/t increasing LLE/LUE pain. Pt refused to attempt to stand again despite max encouragement from this therapist. Returned pt back to bed. Positioned pt to comfort in semifowler. Call light/phone within reach. Bed alarm on. Needs met A: Poor tolerance to tx. Pt very anxious and fearful. Requires max encouragement from this therapist to participate in PT activities. Pt yells and cries d/t pain and uncooperative. P; Continue w/ POC and progress as tolerated
[2018-05-31 14:26] VITALS: BP 128/70; PULSE 86; RESP 18
--- NOTE | 2018-05-31 18:47 | NUR ---
End of shift note Patient remains alert and oriented x4. Patient continues to have a flat affect and periods of crying. Patient received 2 tabs of [place] po prn for pain throughout the shift. Patient was seen by physical therapy twice but has had poor progress. No family at the bedside. Patient needs alot of motivation to even attempt to move at all during the shift. Patient continues to have gore catheter in place and remains patent, no orders to d/c. Patient educated on safety precautions and encouraged to use the call siddiqui for assistance. Call siddiqui remains within reach. Patient continues to rest comfortably in bed.
[2018-05-31 19:35] VITALS: BP 137/74; PULSE 96; RESP 20
[2018-06-01] MEDS: HYDROCODONE/APAP (5/325) TAB PO PRN ×3 (01:09→17:38)
[2018-06-01 02:20] VITALS: BP 142/65; PULSE 79; RESP 20
--- NOTE | 2018-06-01 05:30 | NUR ---
EOSS Patient alert, oriented, pain controlled with pain meds, able to sleep through the night. Dressing on the Left hip was CDI with a good CMS on BLE. Left shoulder on a sling with a good CMS. repositioned q 2 hrs. FC inplaced patent with yellow urine output. All needs attended, call light is within reach.
[2018-06-01] MEDS: BISACODYL (EC) 5 MG TAB PO PRN ×2 (05:57→21:05)
[2018-06-01] MEDS: DOCUSATE SODIUM 100 MG CAP PO PRN ×2 (05:58→21:05)
[2018-06-01 08:06] VITALS: BP 120/57; PULSE 61; RESP 18
[2018-06-01] MEDS: FERROUS SULFATE (EC) 325 MG TAB PO SCH (08:40)
[2018-06-01] MEDS: DULOXETINE 30 MG CAP DR PO SCH (08:40)
[2018-06-01] MEDS: INSULIN ASPART [NOVOLOG] 3 ML PEN SC SCH ×4 (08:45→21:15)
[2018-06-01] MEDS: ENOXAPARIN 40 MG/0.4 ML SYG SC SCH (08:46)
--- NOTE | 2018-06-01 09:20 | PN ---
Date/Time of Note Date/Time of Note DATE: 06/01/18 TIME: 09:20 Assessment/Plan VTE Prophylaxis Risk score (from Nsg)>0 risk: 5 SCD applied (from Nsg): Yes Pharmacological prophylaxis: LMWH Lines/Catheters IV Catheter Type (from Nrsg): Saline Lock Urinary Cath still in place: Yes Reason Cath still needed: skin wounds contaminated by urine Assessment/Plan Assessment/Plan 1. Left proximal humerus fracture and a closed severely comminuted intra-art icular left distal humerus fracture- stable - CM on board and states needs SNF placement then can arrange appointment with ortho as outpatient. Discussed plan of care with Dr. Gruber - Orthopedic surgeon, Dr. Gruber, is recommending higher level of care given complexity of fracture. Spoke to CM who reached out to [facility]. Per [facility] ortho, patient will need to follow up as outpatient in clinic for evaluation and will not be accepted as a transfer. When discussed with Dr. Gruber, he emphasized need for elbow to be repaired in the next 1-2 weeks due to severity of fracture and was willing to get in contact with ortho at [facility]. requested a contact number for orthopedic surgeon optimization specialist or transfer line for MD to MD but Toyin BENITEZ at [facility] refused to provide. States Dr. Gruber can call the hospital and request via overhead paging to speak with orthopedic surgeon. Request placed for stat appointment with ortho - Pain control and continue arm in sling with non weight bearing to LUE 2. Left femoral neck fracture s/p repair on 05/28/18 - Ortho on board and consultation appreciated. - PT on board 3. h/o depression - patient states she has not been taking Cymbalta since last discharge but helped when on the medication in the past - restarted on Cymbalta 4. Diabetes Mellitus - A1c noted - holding glipizide at this time - ISS and accuchecks 5. Disposition - CM on board for SNF placement and arranging for ortho follow up as outpatient for shoulder/elbow repair Result Diagram: 05/31/18 0456 05/30/18 0428 Results 24hrs Laboratory Tests Test 05/31/18 13:05 05/31/18 17:54 05/31/18 20:58 06/01/18 02:42 Bedside Glucose 127 163 188 193 Test 06/01/18 08:35 Bedside Glucose 158 Subjective 24 Hr Interval Summary Free Text/Dictation Patient resting comfortable. No acute overnight events. Denies any new complaints. Exam/Review of Systems Exam Vitals Vital Signs Date Temp Pulse Resp B/P (MAP) Pulse Ox O2 O2 Flow FiO2 Time Delivery Rate 06/01/18 98.3 61 18 120/57 98 Room Air 08:06 (78) 05/29/18 2.0 03:27 Intake and Output 05/31/18 05/31/18 06/01/18 1515:00 23:00 07:00 IntakeIntake Total 220 ml 240 ml BalanceBalance 220 ml 240 ml Exam General: Patient is currently lying in bed, distress with movement of left arm Neck: Supple Lungs: Clear to auscultation bilaterally no crackles rales or wheezing Heart: Normal S1-S2, Regular rhythm and rate. No murmur, S3, or S4 Abdomen: Soft , nontender, nondistended , bowel sounds are present. No guarding no rebound tenderness Extremities: left upper extremity in sling with Kerlix around limb Skin: no rashes or lesions appreciated. Results Results 24hrs Laboratory Tests Test 05/31/18 13:05 05/31/18 17:54 05/31/18 20:58 06/01/18 02:42 Bedside Glucose 127 163 188 193 Test 06/01/18 08:35 Bedside Glucose 158 Medications Medication Current Medications IV Flush (NS 3 ml) 3 ml PER PROTOCOL IV ; Start 05/27/18 at 23:30 Ondansetron HCl (Zofran Inj) 4 mg Q6H PRN IV NAUSEA AND/OR VOMITING; Start 05/27/18 at 23:30 Acetaminophen (Tylenol Tab) 650 mg Q6H PRN PO PAIN LEVEL 1-3 OR FEVER Last administered on 05/28/18at 02:56; Admin Dose 650 MG; Start 05/27/18 at 23:30 Acetaminophen/ Hydrocodone Bitart ([place] (5/325)) 1 tab Q6H PRN PO PAIN LEVEL 4-6 Last administered on 05/29/18at 19:41; Admin Dose 1 TAB; Start 05/27/18 at 23:30 Acetaminophen/ Hydrocodone Bitart ([place] (5/325)) 2 tab Q6H PRN PO PAIN LEVEL 7-10 Last administered on 06/01/18at 08:42; Admin Dose 2 TAB; Start 05/27/18 at 23:30 Docusate Sodium (Colace) 100 mg Q12H PRN PO CONSTIPATION Last administered on 06/01/18at 05:58; Admin Dose 100 MG; Start 05/27/18 at 23:30 Bisacodyl (Dulcolax) 5 mg DAILY PRN PO CONSTIPATION Last administered on 06/01/18at 05:57; Admin Dose 5 MG; Start 05/27/18 at 23:30 Insulin Aspart (Novolog Insulin Pen) NOVOLOG *MILD* ALGORITHM WITH MEALS BEDTIME SC Last administered on 06/01/18at 08:45; Admin Dose 1 UNIT; Start 05/28/18 at 08:00 Miscellaneous Information 1 ea NOTE XX ; Start 05/28/18 at 04:30 Glucose (Glutose) 15 gm Q15M PRN PO DECREASED GLUCOSE; Start 05/28/18 at 04:30 Glucose (Glutose) 22.5 gm Q15M PRN PO DECREASED GLUCOSE; Start 05/28/18 at 04:30 Dextrose (D50w Syringe) 25 ml Q15M PRN IV DECREASED GLUCOSE; Start 05/28/18 at 04:30 Dextrose (D50w Syringe) 50 ml Q15M PRN IV DECREASED GLUCOSE; Start 05/28/18 at 04:30 Glucagon (Glucagen) 1 mg Q15M PRN IM DECREASED GLUCOSE; Start 05/28/18 at 04:30 Glucose (Glutose) 15 gm Q15M PRN BUCCAL DECREASED GLUCOSE; Start 05/28/18 at 04:30 Lorazepam (Ativan) 1 mg Q2H PRN IV withdrawal, anxiety, agitation Last administered on 05/29/18at 19:41; Admin Dose 1 MG; Start 05/28/18 at 11:30 Duloxetine HCl (Cymbalta) 30 mg DAILY PO Last administered on 06/01/18at 08:40; Admin Dose 30 MG; Start 05/28/18 at 11:30 Morphine Sulfate (morphine) 2 mg Q4H PRN IV PAIN LEVEL 7-10 Last administered on 05/31/18at 01:18; Admin Dose 2 MG; Start 05/28/18 at 13:30 Naloxone HCl (Narcan) 0.2 mg Q2M PRN IV OPIATE OVERDOSE; Start 05/28/18 at 20:00 Miscellaneous Information (* Miscellaneous Pharmacy Order) DURAMORPH: 0.2 MG SPI... GIVEN NEURAXIAL XX ; Start 05/28/18 at 20:00 Enoxaparin Sodium (Lovenox) 40 mg DAILY SC Last administered on 06/01/18at 08:46; Admin Dose 40 MG; Start 05/29/18 at 09:00 Ferrous Sulfate (Ferrous Sulfate (Ec)) 325 mg DAILY PO Last administered on 06/01/18at 08:40; Admin Dose 325 MG; Start 05/29/18 at 09:30 VALERY LI MD Jun 01, 2018 09:20
--- NOTE | 2018-06-01 10:15 | NUR ---
PT NOTE [facility] Patient: Joana Dozier : 1955 Age/Sex: 62/F Unit#: [id number] Room/Bed: 408/A User: Ronda Mullen PTA Date: 06/01/18 09:45 Type: PT Technical Record Therapy day number 4 Subjective Current complaint of pain Pain Scale NUMERIC Pain Intensity 8 (0-10) Patient Stated Goal for Pain Relief 0 (0-10) Pain Level Comment L NORBERT and Garcia DEAN with bed mobility; premedicated Exercise Assessment Label Bilat Lower Extremity Exercise Type Active ROM Additional Exercise Comments seated B SAQs and marching Exercise Start Time 10:06 Exercise End Time 10:15 Total Exercise Time 9 min (8-127) Transfer Training Start Time 09:45 Supine to Sit Maximum Assist Transfer Sit to Stand Ability Maximum Assist Bed Mobility Sit to Supine Moderate Assist Additional Mobility Comments used BR, HOB elevated, assist with trunk and scooting to EOB. Transfer Training End Time 10:05 Total Transfer Training Time 20 min (8-127) Static Sitting Balance Fair Dynamic Sitting Balance Fair Standing Static Balance Poor Additional Balance Assessments Comments static sitting improved to CGA/SBA with prolonged sitting Safety Judgement Fair Activity Tolerance Fair Equipment Present A pump Real Catheter Additional Equipment Present L UE sling; 3.5L/min via NC Post Treatment Pain Intensity 8 0-10 Total Treament Time 29 min (8-127) Total Minutes 29 Total Units 2 PT Technical Record Comment PT NOTE S: "My leg feels heavy." Agreed to skilled PT. Cleared and premedicated by BETH Cantu. O: Received awake in semi-swain with 3.5L/min via NC. Doffed NC. See tech record for assist levels. Transfered to EOB, very slow movements, VCs on hand placement and sequencing, deep breathing technique for pain management, required increased assist with trunk and scooting to EOB. EOB sitting to perform B LE therex; see tech record for details. STS transfer with R CYTOGENETICIST, 2P max A. VCs on full hip ext. R lateral lean. Returned to EOB d/t fatigue. Mod A with B LEs to supine. VCs on sequencing to reposition to center of bed. Positioned in supine, call light and all necessities within reach, dietary at bedside. Informed RN. A: Pt demian tx fairly. 2PA for safety and mobility. Performed all activities on RA with 1 c/o dizziness during supine to sit transfer. Dizziness improved with prolonged sitting. Pt education on deep breathing technique. RN to confirm L LE WBAT status. Pt can be easily distracted. P: Continue with POC.
--- NOTE | 2018-06-01 14:10 | NUR ---
PT NOTE [facility] Patient: Joana Dozier : 1955 Age/Sex: 62/F Unit#: [id number] Room/Bed: 408/A User: Ronda Mullen PTA Date: 06/01/18 13:46 Type: PT Technical Record Therapy day number 4 Subjective Current complaint of pain Pain Scale NUMERIC Pain Intensity 10 (0-10) Patient Stated Goal for Pain Relief 0 (0-10) Pain Level Comment denied pain at rest; pain with mobility and transfers; RN aware Exercise Assessment Label Bilat Lower Extremity Exercise Type Active ROM Additional Exercise Comments seated HRs and SAQs Transfer Training Start Time 13:46 Supine to Sit Maximum Assist Transfer Sit to Stand Ability Maximum Assist Bed Mobility Sit to Supine Maximum Assist Additional Mobility Comments Max/mod to EOB; max/dep STS x1; attempted with hemiwalker Transfer Training End Time 14:10 Total Transfer Training Time 24 min (8-127) Weight Bearing Assessment Label Left Lower Extremity Weight Bearing Status Weight Bearing as Sandro Weight Bearing Assessment Label Left Upper Extremity Weight Bearing Status Non Weight Bearing Additional Weight Bearing Comments L UE sling Static Sitting Balance Fair Dynamic Sitting Balance Fair Standing Static Balance Poor Safety Judgement Fair Activity Tolerance Poor Equipment Present A pump Real Catheter IV pump Additional Equipment Present L UE sling Post Treatment Pain Intensity 5 0-10 Total Treament Time 24 min (8-127) Total Minutes 24 Total Units 2 PT Technical Record Comment PT NOTE S: No c/o pain at rest. Pt crying and screaming of L UE and L LE pain with activities. Agreed to skilled PT. Cleared by BETH Cantu. RN aware of pain level; will provide pain meds following PT session; pt aware. O: Received awake in supine. See tech record for assist levels. VCs on hand placement and sequencing. EOB sitting; performed therex. Attempted STS with hemiwalker; max/dep 2PA; pt reported awkwardness and refused further use. STS with R NBA PLAYER 2P max A. Improvement with full standing position but decreased endurance. Returned back to supine. VCs on sequencing to reposition to center of bed. Dep repositioning to HOB. Left in supine, SCDs on, call light and all necessities within reach. RN aware. A: Pt sandro tx poorly. Required additional encouragement to participate. Pt reported increased pain with activities. Pt reported dislike of hemiwalker regardless of pt education on improved stability and safety. P: Continue with POC.
[2018-06-01] MEDS ORDERED: morphine LIQ (10 MG/5 ML) CUP PO PRN (15:00)
[2018-06-01 15:34] VITALS: BP 137/64; PULSE 87; RESP 18
--- NOTE | 2018-06-01 17:06 | NUR ---
RN NOTE =alert oriented with s/p left femur sx ,. dressing intact and dry with no drainage noted ,. left humerus with bias wrap dressing intact with sling all the time. ,F/C to gravity draining ,. medicated patient for pain as per pain mgt level ,. =patient seen by PT today . =diet tolerated no n/v.
[2018-06-01 19:25] VITALS: BP 135/63; PULSE 86; RESP 20
[2018-06-02] MEDS: HYDROCODONE/APAP (5/325) TAB PO PRN (01:17)
[2018-06-02 02:30] VITALS: BP 150/70; PULSE 89; RESP 20
--- NOTE | 2018-06-02 05:09 | NUR ---
EOSS Patient alert, oriented, pain controlled with pain meds. Dressing on the left hip was CDI has a good CMS on BLE. Real catheter was patent draining via gravity with yellow urine output. Reposition patient q 2hrs. All needs attended, call light is within reach.
[2018-06-02 07:27] VITALS: BP 168/75; PULSE 83; RESP 15
[2018-06-02] MEDS ORDERED: POTASSIUM CHLORIDE (SR) 20 MEQ TAB PO STA (08:26)
--- NOTE | 2018-06-02 08:29 | PN ---
Date/Time of Note Date/Time of Note DATE: 06/02/18 TIME: 08:29 Assessment/Plan VTE Prophylaxis Risk score (from Nsg)>0 risk: 3 SCD applied (from Nsg): Yes Pharmacological prophylaxis: LMWH Lines/Catheters IV Catheter Type (from Nrsg): Saline Lock Urinary Cath still in place: No Assessment/Plan Assessment/Plan 1. Left proximal humerus fracture and a closed severely comminuted intra- articular left distal humerus fracture- stable - CM on board and states needs SNF placement then can arrange appointment with ortho as outpatient. Discussed plan of care with Dr. Gruber - Orthopedic surgeon, Dr. Gruber, is recommending higher level of care given complexity of fracture. Spoke to who reached out to [facility]. Per [facility] ortho, patient will need to follow up as outpatient in clinic for evaluation and will not be accepted as a transfer. When discussed with Dr. Gruber, he emphasized need for elbow to be repaired in the next 1-2 weeks due to severity of fracture and was willing to get in contact with ortho at [facility]. requested a contact number for orthopedic surgeon options advisor or transfer line for MD to MD but Toyin BENITEZ at [facility] refused to provide. States Dr. Gruber can call the hospital and request via overhead paging to speak with orthopedic surgeon. Request placed for stat appointment with ortho - Pain control and continue arm in sling with non weight bearing to LUE 2. Left femoral neck fracture s/p repair on 05/28/18 - Ortho on board and consultation appreciated. - PT on board 3. h/o depression - Continue on Cymbalta 4. Diabetes Mellitus - A1c noted - holding glipizide at this time - ISS and accuchecks 5. Constipation - bowel regime 6. Disposition - CM on board for SNF placement and arranging for ortho follow up appointment as outpatient for shoulder/elbow repair Result Diagram: 06/02/188 06/02/18 0448 Results 24hrs Laboratory Tests Test 06/01/18 08:35 06/01/18 12:42 06/01/18 17:42 06/01/18 21:04 Bedside Glucose 158 162 171 194 Test 06/02/18 02:27 06/02/18 04:48 06/02/18 08:24 Bedside Glucose 211 154 White Blood Count 5.5 Red Blood Count 3.82 L Hemoglobin 10.3 L Hematocrit 32.6 L Mean Corpuscular 85.3 Volume Mean Corpuscular 27.0 L Hemoglobin Mean Corpuscular 31.6 L Hemoglobin Concent Red Cell 15.9 H Distribution Width Platelet Count 327 # Mean Platelet Volume 9.8 Immature 0.400 Granulocytes % Neutrophils % 61.2 Lymphocytes % 20.3 Monocytes % 9.6 Eosinophils % 8.0 H Basophils % 0.5 Nucleated Red Blood 0.0 Cells % Immature 0.020 Granulocytes # Neutrophils # 3.4 Lymphocytes # 1.1 Monocytes # 0.5 Eosinophils # 0.4 Basophils # 0.0 Nucleated Red Blood 0.0 Cells # Sodium Level 140 Potassium Level 3.6 Chloride Level 98 Carbon Dioxide Level 31 Anion Gap 11 Blood Urea Nitrogen 18 Creatinine 0.46 Glucose Level 193 Calcium Level 8.9 Phosphorus Level 4.3 Magnesium Level 2.1 Albumin 3.3 Subjective 24 Hr Interval Summary Free Text/Dictation Patient tearful this am and states she feels like her mind is telling her she needs to have BM but her body wont let her. Discussed pain medications cause constipation and offered suppository but would like to try PO for now. She is also hesitant with PT which is believed to be secondary to fear of falling again. Exam/Review of Systems Exam Vitals Vital Signs Date Temp Pulse Resp B/P (MAP) Pulse Ox O2 O2 Flow FiO2 Time Delivery Rate 06/02/18 97.7 83 15 168/75 100 Room Air 07:27 (106) Intake and Output 06/01/18 06/01/18 06/02/18 1515:00 23:00 07:00 IntakeIntake Total 200 ml 840 ml 200 ml OutputOutput Total 900 ml 400 ml BalanceBalance -700 ml 840 ml -200 ml Exam General: Patient is currently lying in bed, tearful this am Neck: Supple Lungs: Clear to auscultation bilaterally no crackles rales or wheezing Heart: Normal S1-S2, Regular rhythm and rate. No murmur, S3, or S4 Abdomen: Soft , nontender, nondistended , bowel sounds are present. No guarding no rebound tenderness Extremities: left upper extremity in sling with Kerlix around limb Skin: no rashes or lesions appreciated. Results Results 24hrs Laboratory Tests Test 06/01/18 08:35 06/01/18 12:42 06/01/18 17:42 06/01/18 21:04 Bedside Glucose 158 162 171 194 Test 06/02/18 02:27 06/02/18 04:48 06/02/18 08:24 Bedside Glucose 211 154 White Blood Count 5.5 Red Blood Count 3.82 L Hemoglobin 10.3 L Hematocrit 32.6 L Mean Corpuscular 85.3 Volume Mean Corpuscular 27.0 L Hemoglobin Mean Corpuscular 31.6 L Hemoglobin Concent Red Cell 15.9 H Distribution Width Platelet Count 327 # Mean Platelet Volume 9.8 Immature 0.400 Granulocytes % Neutrophils % 61.2 Lymphocytes % 20.3 Monocytes % 9.6 Eosinophils % 8.0 H Basophils % 0.5 Nucleated Red Blood 0.0 Cells % Immature 0.020 Granulocytes # Neutrophils # 3.4 Lymphocytes # 1.1 Monocytes # 0.5 Eosinophils # 0.4 Basophils # 0.0 Nucleated Red Blood 0.0 Cells # Sodium Level 140 Potassium Level 3.6 Chloride Level 98 Carbon Dioxide Level 31 Anion Gap 11 Blood Urea Nitrogen 18 Creatinine 0.46 Glucose Level 193 Calcium Level 8.9 Phosphorus Level 4.3 Magnesium Level 2.1 Albumin 3.3 Medications Medication Current Medications IV Flush (NS 3 ml) 3 ml PER PROTOCOL IV ; Start 05/27/18 at 23:30 Ondansetron HCl (Zofran Inj) 4 mg Q6H PRN IV NAUSEA AND/OR VOMITING; Start 05/27/18 at 23:30 Acetaminophen (Tylenol Tab) 650 mg Q6H PRN PO PAIN LEVEL 1-3 OR FEVER Last administered on 05/28/18at 02:56; Admin Dose 650 MG; Start 05/27/18 at 23:30 Acetaminophen/ Hydrocodone Bitart ([place] (5/325)) 1 tab Q6H PRN PO PAIN LEVEL 4-6 Last administered on 05/29/18at 19:41; Admin Dose 1 TAB; Start 05/27/18 at 23:30 Acetaminophen/ Hydrocodone Bitart ([place] (5/325)) 2 tab Q6H PRN PO PAIN LEVEL 7-10 Last administered on 06/02/18at 01:17; Admin Dose 2 TAB; Start 05/27/18 at 23:30 Docusate Sodium (Colace) 100 mg Q12H PRN PO CONSTIPATION Last administered on 06/01/18at 21:05; Admin Dose 100 MG; Start 05/27/18 at 23:30 Bisacodyl (Dulcolax) 5 mg DAILY PRN PO CONSTIPATION Last administered on 06/01at 21:05; Admin Dose 5 MG; Start 05/27/18 at 23:30 Insulin Aspart (Novolog Insulin Pen) NOVOLOG *MILD* ALGORITHM WITH MEALS BEDTIME SC Last administered on 06/01/18at 21:15; Admin Dose 1 UNIT; Start 05/28/18 at 08:00 Miscellaneous Information 1 ea NOTE XX ; Start 05/28/18 at 04:30 Glucose (Glutose) 15 gm Q15M PRN PO DECREASED GLUCOSE; Start 05/28/18 at 04:30 Glucose (Glutose) 22.5 gm Q15M PRN PO DECREASED GLUCOSE; Start 05/28/18 at 04:30 Dextrose (D50w Syringe) 25 ml Q15M PRN IV DECREASED GLUCOSE; Start 05/28/18 at 04:30 Dextrose (D50w Syringe) 50 ml Q15M PRN IV DECREASED GLUCOSE; Start 05/28/18 at 04:30 Glucagon (Glucagen) 1 mg Q15M PRN IM DECREASED GLUCOSE; Start 05/28/18 at 04:30 Glucose (Glutose) 15 gm Q15M PRN BUCCAL DECREASED GLUCOSE; Start 05/28/18 at 04:30 Lorazepam (Ativan) 1 mg Q2H PRN IV withdrawal, anxiety, agitation Last administered on 05/29/18at 19:41; Admin Dose 1 MG; Start 05/28/18 at 11:30 Duloxetine HCl (Cymbalta) 30 mg DAILY PO Last administered on 06/01/18at 08:40; Admin Dose 30 MG; Start 05/28/18 at 11:30 Naloxone HCl (Narcan) 0.2 mg Q2M PRN IV OPIATE OVERDOSE; Start 05/28/18 at 20:00 Miscellaneous Information (* Miscellaneous Pharmacy Order) DURAMORPH: 0.2 MG SPI... GIVEN NEURAXIAL XX ; Start 05/28/18 at 20:00 Enoxaparin Sodium (Lovenox) 40 mg DAILY SC Last administered on 06/01/18at 08:46; Admin Dose 40 MG; Start 05/29/18 at 09:00 Ferrous Sulfate (Ferrous Sulfate (Ec)) 325 mg DAILY PO Last administered on 06/01/18at 08:40; Admin Dose 325 MG; Start 05/29/18 at 09:30 Morphine Sulfate (morphine) 6 mg Q4H PRN PO SEVERE PAIN LEVEL 7-10; Start 06/01/18 at 15:00 VALERY LI MD Jun 02, 2018 08:29
[2018-06-02] MEDS: DULOXETINE 30 MG CAP DR PO SCH (08:39)
[2018-06-02] MEDS: FERROUS SULFATE (EC) 325 MG TAB PO SCH (08:39)
[2018-06-02] MEDS: INSULIN ASPART [NOVOLOG] 3 ML PEN SC SCH ×4 (08:43→20:44)
[2018-06-02] MEDS: ENOXAPARIN 40 MG/0.4 ML SYG SC SCH (08:43)
[2018-06-02] MEDS: DOCUSATE SODIUM 100 MG CAP PO PRN (10:03)
--- NOTE | 2018-06-02 12:40 | NUR ---
Discharge planning; Faxed order details about SNF placement and outpatient follow up to [facility] . Will endorse to CM Team to follow up about PIPA's arrangements.
[2018-06-02] MEDS: POLYETHYLENE GLYCOL 17 GM PACKET PO SCH (12:44)
--- NOTE | 2018-06-02 18:54 | NUR ---
END OF SHIFT NOTE: Per MD order, gore removed, site asymptomatic, perineal care done, pt voiding well. Pt with continued arm pain with movement. Pt with constipation, miralax and colace given, small formed BM x2. AccuCheck ACHS done, insulin given per policy. Bed alarm active, call siddiqui placed within reach, VSS, hourly rounding maintained.
[2018-06-02 20:08] VITALS: BP 140/69; PULSE 95; RESP 18
[2018-06-02] MEDS: SENNA/DOCUSATE NA (8.6MG/50MG) TAB PO SCH (20:43)
[2018-06-02] MEDS: ACETAMINOPHEN 325 MG TAB PO PRN (23:00)
[2018-06-03 02:05] VITALS: BP 142/72; PULSE 72; RESP 18
--- NOTE | 2018-06-03 05:47 | NUR ---
END OF SHIFT REPORTS: patient is resting comfortably in bed at this moment. blood sugar at hs was 166, no coverage given. no acute events during the shift. afebrile. still waiting for the snf placement. bed alarm on.
[2018-06-03 08:27] VITALS: BP 140/72; PULSE 85; RESP 14
[2018-06-03] MEDS: SENNA/DOCUSATE NA (8.6MG/50MG) TAB PO SCH ×2 (08:45→20:13)
[2018-06-03] MEDS: FERROUS SULFATE (EC) 325 MG TAB PO SCH (08:45)
[2018-06-03] MEDS: DULOXETINE 30 MG CAP DR PO SCH (08:45)
[2018-06-03] MEDS: POLYETHYLENE GLYCOL 17 GM PACKET PO SCH (08:46)
[2018-06-03] MEDS: ENOXAPARIN 40 MG/0.4 ML SYG SC SCH (08:47)
[2018-06-03] MEDS: INSULIN ASPART [NOVOLOG] 3 ML PEN SC SCH ×4 (08:47→20:17)
--- NOTE | 2018-06-03 09:26 | NUR ---
PT NOTE Therapy day number 5 Subjective Denies pain Pain Scale NUMERIC Pain Intensity 0 (0-10) Patient Stated Goal for Pain Relief 0 (0-10) Pain Level Comment DENIES PAIN AT REST Transfer Training Start Time 09:26 Supine to Sit Maximum Assist Transfer Sit to Stand Ability Maximum Assist Bed Mobility Sit to Supine Maximum Assist Bed Transfer Ability Maximum Assist Chair Transfer Ability Maximum Assist Additional Mobility Comments Max/mod to EOB; max/dep STS x3 PROTOHISTORIAN. Transfer bed<>BSC x 1 Transfer Training End Time 09:40 Total Transfer Training Time 14 min (8-127) Gait Training Start Time 09:40 Gait Assist Levels Maximum Assist Assistive Devices None Additional Gait Comments PROTOHISTORIAN 5 R side steps Gait Training End Time 10:06 Total Gait Training Treatment Time 26 min (8-127) Weight Bearing Assessment Label Left Lower Extremity Weight Bearing Status Weight Bearing as Sandro Weight Bearing Assessment Label Left Upper Extremity Weight Bearing Status Non Weight Bearing Additional Weight Bearing Comments L UE sling Static Sitting Balance Fair plus Dynamic Sitting Balance Fair Standing Static Balance Poor plus Dynamic Standing Balance Poor plus Safety Judgement Fair Activity Tolerance Fair Equipment Present A pump Additional Equipment Present L UE sling Post Treatment Pain Intensity 0 0-10 Total Treament Time 40 min (8-127) Total Minutes 40 Total Units 3 PT Technical Record Comment PT NOTE S: Pt stated, "Right now I am feeling okay I guess." Agreeable for PT and cleared per BETH Alonzo. O: Received pt in semi-fowlers, alert w/LUE sling donned. Bed mobility w/HOB elevated using BR w/VCs/TCs for sequence Max/ModA x 2. Applied gait belt at EOB. STS x 3 MaxA 2PA PROTOHISTORIAN, pt refused hemiwalker at this time. Transferred training pivoting from bed<>BSC x 1 MaxA 2PA. Pt performed 5 R side steps to HOB MaxA 2PA. Positioned pt for comfort, call light/phone within reach, bed alarmed, and all needs met. BETH Alonzo informed of pt's status. A: Fair tolerance to tx. Pt showed no signs of SOB during or after tx. No c/o dizziness or nausea throughout tx. Pt required encouragement throughout tx due to pt being anxious and fearful. Will continue practicing transfers in p.m session. P: Continue POC and progress as tolerated.
[2018-06-03] MEDS: ACETAMINOPHEN 325 MG TAB PO PRN (13:14)
--- NOTE | 2018-06-03 13:46 | NUR ---
PT NOTE Therapy day number 5 Subjective Denies pain Pain Scale NUMERIC Pain Intensity 0 (0-10) Patient Stated Goal for Pain Relief 0 (0-10) Pain Level Comment denies pain at rest Transfer Training Start Time 13:46 Supine to Sit Maximum Assist Transfer Sit to Stand Ability Maximum Assist Bed Mobility Sit to Supine Maximum Assist Additional Mobility Comments Max/mod STS; max x 1 STS x2 using hemiwalker. Transfer bed<>BSC x 2 Transfer Training End Time 14:00 Total Transfer Training Time 14 min (8-127) Gait Training Start Time 14:00 Gait Assist Levels Moderate Assist Assistive Devices Ramiro Walker Ambulation Distance 2 feet Additional Gait Comments 2' x 4 transferring from bed<>BSC x 2 ModA x 1, 2PA for safety Gait Training End Time 14:24 Total Gait Training Treatment Time 24 min (8-127) Weight Bearing Assessment Label Left Lower Extremity Weight Bearing Status Weight Bearing as Sandro Weight Bearing Assessment Label Left Upper Extremity Weight Bearing Status Non Weight Bearing Additional Weight Bearing Comments L UE sling Static Sitting Balance Fair plus Dynamic Sitting Balance Fair Standing Static Balance Poor plus Dynamic Standing Balance Poor plus Safety Judgement Fair Activity Tolerance Fair Equipment Present A pump IV pump Additional Equipment Present L UE sling Post Treatment Pain Intensity 0 0-10 Total Treament Time 38 min (8-127) Total Minutes 38 Total Units 3 PT Technical Record Comment PT NOTE S: Pt stated, "I sat in the chair for 30 minutes." Agreeable for PT and cleared per BETH Alonzo. O: Received pt in semi-fowlers, alert w/LUE sling donned. Bed mobility w/HOB elevated using BR w/VCs/TCs for sequence Max/ModA x 2. Applied gait belt at EOB. STS x 2 using hemiwalker MaxA 1PA, 2PA for safety w/VCs/TCs for proper hand/foot placement and sequence. Ambulated 2' x 4 w/hemiwalker ModA 1PA, 2PA for safety from bed<>BSC x 2 ModA 1PA, 2PA for safety. Assisted pt BTB. Positioned pt for comfort, call light/phone within reach, bed alarmed, and all needs met. BETH Alonzo informed of pt's status. A: Fair tolerance to tx. Pt showed no signs of SOB during or after tx. No c/o dizziness or nausea throughout tx. Pt was very emotional and required encouragement throughout tx. Pt is clear to BSC w/nursing staff using gait belt and RETAIL PROPERTY MANAGER w/RUE only due to NWB SABRINA RN notified. P: Continue POC and progress as tolerated.
--- NOTE | 2018-06-03 14:30 | NUR ---
CM NOTES: THIS CM FOLLOWED UP WITH SNF PLACEMENT WITH LORIE GARCES AND HE INDICATED THAT [facility] DID NOT RECEIVE PHYSICAL THERAPY NOTES ON 06-02. THIS CM INFORMED HIM THAT THIS CM WILL REFAX ORDER AND PHYSICAL THERAPY NOTES FOR THE THIRD TIME. THIS CM DID AGAIN FAX REFERRAL PACKAGE TO [facility] AT [phone] (M) TODAY. THIS CM ALSO INFORMED HEALTHCARE ACCOUNT MANAGER, FERNANDA TO MEET WITH THE PT REGARDING HER SS CHECK INFORMATION BECAUSE MANY OF SNF FACILITIES NEED TO KNOW THE INFORMATION. HE AGREED TO FOLLOW UP. THIS CM WILL FOLLOW UP AGAIN WITH [facility] REGARDING THE SNF REFERRALS AND AUTH. ANN MARIE DEL CASTILLO CM [id number] Addendum: 06/03/18 at 1451 by ANN MARIE GARCIA CM THIS CM ALSO FAXED ALL REFERRALS TO CONTRACTED FACILITIES FIRST SINCE [facility] IS NOT AVAILABLE RIGHT NOW. REFERRALS WERE MADE TO [facility], [facility], [facility] AND [facility], [facility]. ALL REFERRALS WERE DONE VIA EFAX. WILL REMAIN AVAILABLE.
--- NOTE | 2018-06-03 16:14 | PN ---
Date/Time of Note Date/Time of Note DATE: 06/03/18 TIME: 16:13 Assessment/Plan VTE Prophylaxis Risk score (from Nsg)>0 risk: 12 SCD applied (from Nsg): Yes Pharmacological prophylaxis: LMWH Lines/Catheters IV Catheter Type (from Nrsg): Saline Lock Urinary Cath still in place: No Assessment/Plan Hospital Course 1. Left proximal humerus fracture and a closed severely comminuted intra- articular left distal humerus fracture- stable - CM on board and states needs SNF placement then can arrange appointment with ortho as outpatient. Discussed plan of care with Dr. Gruber - Orthopedic surgeon, Dr. Gruber, is recommending higher level of care given complexity of fracture. Spoke to CM who reached out to [facility]. Per [facility] ortho, patient will need to follow up as outpatient in clinic for evaluation and will not be accepted as a transfer. When discussed with Dr. Gruber, he emphasized need for elbow to be repaired in the next 1-2 weeks due to severity of fracture and was willing to get in contact with ortho at [facility]. requested a contact number for orthopedic surgeon is consultant or transfer line for MD to MD but Toyin BENITEZ at [facility] refused to provide. States Dr. Gruber can call the hospital and request via overhead paging to speak with orthopedic surgeon. Request placed for stat appointment with ortho - Pain control and continue arm in sling with non weight bearing to LUJuan 2. Left femoral neck fracture s/p repair on 05/28/18 - Ortho on board and consultation appreciated. - PT on board 3. h/o depression - Continue on Cymbalta 4. Diabetes Mellitus - A1c noted - holding glipizide at this time - ISS and accuchecks 5. Constipation - bowel regime Prophylaxis: Lovenox DC planning: CM on board for SNF placement and arranging for ortho follow up appointment as outpatient for shoulder/elbow repair Result Diagram: 06/03/18 0435 06/03/18 0435 Results 24hrs Laboratory Tests Test 06/02/18 18:01 06/02/18 20:41 06/03/18 04:35 06/03/18 08:43 Bedside Glucose 153 166 182 White Blood Count 5.9 Red Blood Count 3.88 L Hemoglobin 10.5 L Hematocrit 32.8 L Mean Corpuscular 84.5 Volume Mean Corpuscular 27.1 L Hemoglobin Mean Corpuscular 32.0 Hemoglobin Concent Red Cell 15.9 H Distribution Width Platelet Count 355 Mean Platelet Volume 9.7 Immature 0.500 H Granulocytes % Neutrophils % 65.0 Lymphocytes % 17.7 Monocytes % 11.2 H Eosinophils % 4.9 Basophils % 0.7 Nucleated Red Blood 0.0 Cells % Immature 0.030 Granulocytes # Neutrophils # 3.8 Lymphocytes # 1.0 Monocytes # 0.7 Eosinophils # 0.3 Basophils # 0.0 Nucleated Red Blood 0.0 Cells # Sodium Level 140 Potassium Level 3.7 Chloride Level 97 Carbon Dioxide Level 30 Anion Gap 13 Blood Urea Nitrogen 13 Creatinine 0.44 Glucose Level 171 Calcium Level 9.1 Phosphorus Level 4.2 Magnesium Level 2.0 Albumin 3.4 Test 06/03/18 13:08 Bedside Glucose 166 Subjective 24 Hr Interval Summary Constitutional: no complaints Exam/Review of Systems Exam Vitals Vital Signs Date Temp Pulse Resp B/P (MAP) Pulse Ox O2 O2 Flow FiO2 Time Delivery Rate 06/03/18 97.8 85 14 140/72 95 Room Air 08:27 (94) Intake and Output 06/02/18 06/02/18 06/03/18 1515:00 23:00 07:00 IntakeIntake Total 480 ml 600 ml 200 ml BalanceBalance 480 ml 600 ml 200 ml Constitutional: alert Respiratory: clear to auscultation Cardiovascular: regular rate and rhythm Gastrointestinal: soft; No distended Musculoskeletal: nl extremities to inspection Results Results 24hrs Laboratory Tests Test 06/02/18 18:01 06/02/18 20:41 06/03/18 04:35 06/03/18 08:43 Bedside Glucose 153 166 182 White Blood Count 5.9 Red Blood Count 3.88 L Hemoglobin 10.5 L Hematocrit 32.8 L Mean Corpuscular 84.5 Volume Mean Corpuscular 27.1 L Hemoglobin Mean Corpuscular 32.0 Hemoglobin Concent Red Cell 15.9 H Distribution Width Platelet Count 355 Mean Platelet Volume 9.7 Immature 0.500 H Granulocytes % Neutrophils % 65.0 Lymphocytes % 17.7 Monocytes % 11.2 H Eosinophils % 4.9 Basophils % 0.7 Nucleated Red Blood 0.0 Cells % Immature 0.030 Granulocytes # Neutrophils # 3.8 Lymphocytes # 1.0 Monocytes # 0.7 Eosinophils # 0.3 Basophils # 0.0 Nucleated Red Blood 0.0 Cells # Sodium Level 140 Potassium Level 3.7 Chloride Level 97 Carbon Dioxide Level 30 Anion Gap 13 Blood Urea Nitrogen 13 Creatinine 0.44 Glucose Level 171 Calcium Level 9.1 Phosphorus Level 4.2 Magnesium Level 2.0 Albumin 3.4 Test 06/03/18 13:08 Bedside Glucose 166 Medications Medication Current Medications IV Flush (NS 3 ml) 3 ml PER PROTOCOL IV ; Start 05/27/18 at 23:30 Ondansetron HCl (Zofran Inj) 4 mg Q6H PRN IV NAUSEA AND/OR VOMITING; Start 05/27/18 at 23:30 Acetaminophen (Tylenol Tab) 650 mg Q6H PRN PO PAIN LEVEL 1-3 OR FEVER Last administered on 06/03/18at 13:14; Admin Dose 650 MG; Start 05/27/18 at 23:30 Acetaminophen/ Hydrocodone Bitart ([place] (5/325)) 1 tab Q6H PRN PO PAIN LEVEL 4-6 Last administered on 05/29/18at 19:41; Admin Dose 1 TAB; Start 05/27/18 at 23:30 Acetaminophen/ Hydrocodone Bitart ([place] (5/325)) 2 tab Q6H PRN PO PAIN LEVEL 7-10 Last administered on 06/02/18at 01:17; Admin Dose 2 TAB; Start 05/27/18 at 23:30 Bisacodyl (Dulcolax) 5 mg DAILY PRN PO CONSTIPATION Last administered on 06/01/18at 21:05; Admin Dose 5 MG; Start 05/27/18 at 23:30 Insulin Aspart (Novolog Insulin Pen) NOVOLOG *MILD* ALGORITHM WITH MEALS BEDTIME SC Last administered on 06/03/18at 13:13; Admin Dose 1 UNIT; Start 05/28/18 at 08:00 Miscellaneous Information 1 ea NOTE XX ; Start 05/28/18 at 04:30 Glucose (Glutose) 15 gm Q15M PRN PO DECREASED GLUCOSE; Start 05/28/18 at 04:30 Glucose (Glutose) 22.5 gm Q15M PRN PO DECREASED GLUCOSE; Start 05/28/18 at 04:30 Dextrose (D50w Syringe) 25 ml Q15M PRN IV DECREASED GLUCOSE; Start 05/28/18 at 04:30 Dextrose (D50w Syringe) 50 ml Q15M PRN IV DECREASED GLUCOSE; Start 05/28/18 at 04:30 Glucagon (Glucagen) 1 mg Q15M PRN IM DECREASED GLUCOSE; Start 05/28/18 at 04:30 Glucose (Glutose) 15 gm Q15M PRN BUCCAL DECREASED GLUCOSE; Start 05/28/18 at 04:30 Lorazepam (Ativan) 1 mg Q2H PRN IV withdrawal, anxiety, agitation Last administered on 05/29/18at 19:41; Admin Dose 1 MG; Start 05/28/18 at 11:30 Duloxetine HCl (Cymbalta) 30 mg DAILY PO Last administered on 06/03/18 08:45; Admin Dose 30 MG; Start 05/28/18 at 11:30 Naloxone HCl (Narcan) 0.2 mg Q2M PRN IV OPIATE OVERDOSE; Start 05/28/18 at 20:00 Miscellaneous Information (* Miscellaneous Pharmacy Order) DURAMORPH: 0.2 MG SPI ... GIVEN NEURAXIAL XX ; Start 05/28/18 at 20:00 Enoxaparin Sodium (Lovenox) 40 mg DAILY SC Last administered on 06/03/18at 08:47; Admin Dose 40 MG; Start 05/29/18 at 09:00 Ferrous Sulfate (Ferrous Sulfate (Ec)) 325 mg DAILY PO Last administered on 06/03/18 08:45; Admin Dose 325 MG; Start 05/29/18 at 09:30 Morphine Sulfate (morphine) 6 mg Q4H PRN PO SEVERE PAIN LEVEL 7-10; Start 06/01/18 at 15:00 Senna/Docusate Sodium (Senokot-S) 1 tab BID PO Last administered on 06/03/18 08:45; Admin Dose 1 TAB; Start 06/02/18 at 21:00 Polyethylene Glycol (Miralax) 17 gm DAILY PO Last administered on 06/03/18 08:46; Admin Dose 17 GM; Start 06/02/18 at 11:00 BARON LITTLE Jun 03, 2018 16:14
--- NOTE | 2018-06-03 16:24 | NUR ---
SS NOTE: CONSULT SW REFERRED TO PT REGARDING POSSIBLE RESOURCES. PT IS 62 YR OLD FEMALE ADMITTED FOR SYNCOPE HUMERUS AND ELBOW FRX. SW MET WITH PT AT BEDSIDE, PT APPEARED TO BE A&OX4 AND COPING APPROPRIATELY WITH ADMISSION. PT STATED THAT SHE HAS LIMITED SUPPORT SYSTEM. PT STATED THAT SHE IS CURRENTLY WITHOUT A PERMANENT RESIDENCE AND LIVES IN [place] FOR MANY YEARS. PT STATED THAT SHE DISABLED AND RECEIVING $990 SSI MONTHLY BENEFIT. PT STATED THAT SHE HAS NO FAMILY AND DOES NOT HAVE A SURROGATE DECISION MAKER. PT DENIED CURRENT ALCOHOL USE DISORDER. PT DENIED METHAMPHETAMINE USE. PT DENIED ANY CURRENT ENGAGEMENT WITH MENTAL HEALTH RESOURCES. PT DENIED MENTAL HEALTH HX. SW PROVIDED EMOTIONAL SUPPORT. SW ASSISTED PT WITH CONFIRMATION THAT HER CAR WAS NOT TOWED. SW DISCUSSED AND PT STATED HAT SHE WOULD BE AGREEABLE TO SPENDING HER $990 SSI BENEFIT FOR HER CARE INCLUDING PLACEMENT IN INDEPENDENT LIVING FACILITY. PLAN IS FOR PT TO D/C TO SNF WHEN MEDIALLY STABLE. SW PROVIDED DETECTIVE PRECINCT CONTACT INFO FOR ANY NEEDED RESOURCES. SW REMAINS AVAILABLE FOR F/U NEEDED.
--- NOTE | 2018-06-03 18:30 | NUR ---
END OF SHIFT NOTE: Patient reports having hallucinations at times and occasionally needs reorientation. Patient cleared to bedside commode by nursing staff. I assisted patient to bedside commode and patient very apprehensive and slow, but able to use bedside commode. Patient refuses pain medication, but we scream in pain when ambulating. Patient only wants tyelnol for pain. Patient dresing on hip intact and left arm in sling. Patient refuses to have sling adjusted appropriately due to pain. Patient tolerating diet and voiding without difficulty. no other events noted.
[2018-06-03 20:53] VITALS: BP 138/69; PULSE 92; RESP 18
[2018-06-04 02:19] VITALS: BP 152/71; PULSE 84; RESP 18
--- NOTE | 2018-06-04 05:31 | NUR ---
END OF SHIFT REPORTS: PATIENT IS RESTING COMFORTABLY IN BED.AFEBRILE. NO COMPLAIN OF PAIN. ASSIST ONLY TO BEDSIDE COMMODE. D/C PLANNING TO SNF, CM ON THE CASE.
[2018-06-04 08:30] VITALS: BP 166/80; PULSE 89; RESP 18
[2018-06-04] MEDS: INSULIN ASPART [NOVOLOG] 3 ML PEN SC SCH ×2 (08:37→13:23)
[2018-06-04] MEDS: SENNA/DOCUSATE NA (8.6MG/50MG) TAB PO SCH (08:38)
[2018-06-04] MEDS: FERROUS SULFATE (EC) 325 MG TAB PO SCH (08:38)
[2018-06-04] MEDS: DULOXETINE 30 MG CAP DR PO SCH (08:38)
[2018-06-04] MEDS: POLYETHYLENE GLYCOL 17 GM PACKET PO SCH (08:39)
[2018-06-04] MEDS: ENOXAPARIN 40 MG/0.4 ML SYG SC SCH (08:41)
--- NOTE | 2018-06-04 09:36 | NUR ---
PT NOTE [facility] Patient: Joana Dozier : 1955 Age/Sex: 62/F Unit#: [id number] Room/Bed: [facility]/A User: Ronda Mullen PTA Date: 06/04/18 09:10 Type: PT Technical Record Therapy day number 6 Subjective Denies pain Pain Scale NUMERIC Pain Intensity 0 (0-10) Patient Stated Goal for Pain Relief 0 (0-10) Pain Level Comment denied pain at rest; 5/10 L UE pain with movement; premedicated Pre Treatment Vital Signs Stable Yes - 126/60 mmHg, 82 bpm, 95% O2 sat on RA Transfer Training Start Time 09:10 Supine to Sit Minimum Assist Transfer Sit to Stand Ability Moderate Assist Bed Mobility Sit to Supine Moderate Assist Additional Mobility Comments STS with hemiwalker, 2PA for mobility Transfer Training End Time 09:25 Total Transfer Training Time 15 min (8-127) Gait Training Start Time 09:26 Gait Assist Levels Minimum Assist Assistive Devices Ramiro Walker Ambulation Distance 6 feet Additional Gait Comments 6'x4, 3 point gait, no LOB, minimal c/o pain Gait Training End Time 09:36 Total Gait Training Treatment Time 10 min (8-127) Weight Bearing Assessment Label Left Lower Extremity Weight Bearing Status Weight Bearing as Sandro Weight Bearing Assessment Label Left Upper Extremity Weight Bearing Status Non Weight Bearing Additional Weight Bearing Comments L UE sling Static Sitting Balance Good Dynamic Sitting Balance Fair plus Standing Static Balance Fair minus Dynamic Standing Balance Fair minus Additional Balance Assessments Comments [email or web address] Safety Judgement Good Activity Tolerance Fair Equipment Present A pump Additional Equipment Present L UE sling Post Treatment Pain Intensity 0 0-10 Total Treament Time 25 min (8-127) Total Minutes 25 Total Units 2 PT Technical Record Comment PT NOTE S: Pt denied any pain at rest but c/o L UE pain with movement and adjustment of sling. Agreed to skilled PT. Cleared and premedicated by BETH Dinero. O: Received awake in semi-swain. Pre tx vitals: 126/60 mmHg, 82 bpm, 95% O2 sat on RA. Supine to sit 1P min A with trunk; supervised scooting to EOB. No c/o dizziness. Attempted STS with CGA, unable. STS with 2P mod A and hemiwalker. Gait training with hemiwalker, VCs on sequencing with AD, 3 point gait, no LOB, slow pace, VCs on upright posture and deep breathing. Returned to EOB d/t fatigue. Mod A to supine, VCs on repositioning to center of bed. Positioned in semi-swain, call light and all necessities within reach, in no apparent distress. A: Pt sandro tx well. Improved bed mobility assist levels and gait distance. Requires less encouragement to participate; pt pleasant throughout. Pt reported most pain during transfers. VCs required on upright posture, breathing technique and sequencing with AD. P: Continue with POC.
[2018-06-04] MEDS ORDERED: HYDR-3601 PO (13:24)
[2018-06-04] MEDS ORDERED: SENOKOTS PO (13:24)
[2018-06-04] MEDS ORDERED: POLY17PO6 PO (13:24)
[2018-06-04] MEDS ORDERED: BISA5TAB6 PO (13:24)
[2018-06-04] MEDS ORDERED: ENOX40DI2 SC (13:24)
[2018-06-04 14:15] VITALS: BP 132/61; PULSE 89; RESP 18
--- NOTE | 2018-06-04 15:35 | NUR ---
PT NOTE [facility] Patient: Joana Dozier : 1955 Age/Sex: 62/F Unit#: [id number] Room/Bed: User: Ronda Mullen PTA Date: 06/04/18 14:55 Type: PT Technical Record Therapy day number 6 Subjective Current complaint of pain Pain Scale NUMERIC Pain Intensity 5 (0-10) Patient Stated Goal for Pain Relief 0 (0-10) Pain Level Comment L UE pain with movement; premedicated Transfer Training Start Time 14:55 Supine to Sit Moderate Assist Transfer Sit to Stand Ability Moderate Assist Bed Mobility Sit to Supine Moderate Assist Additional Mobility Comments 1PA Transfer Training End Time 15:20 Total Transfer Training Time 25 min (8-127) Gait Training Start Time 15:21 Gait Assist Levels Minimum Assist Assistive Devices Ramiro Walker Ambulation Distance 6 feet Additional Gait Comments 6'x2; dec willis Gait Training End Time 15:35 Total Gait Training Treatment Time 14 min (8-127) Weight Bearing Assessment Label Left Lower Extremity Weight Bearing Status Weight Bearing as [place] Weight Bearing Assessment Label Left Upper Extremity Weight Bearing Status Non Weight Bearing Additional Weight Bearing Comments L UE sling Static Sitting Balance Good Dynamic Sitting Balance Good Standing Static Balance Fair Dynamic Standing Balance Fair minus Safety Judgement Good Activity Tolerance Fair Equipment Present A pump Additional Equipment Present L UE sling Post Treatment Pain Intensity 0 0-10 Total Treament Time 39 min (8-127) Total Minutes 39 Total Units 3 PT Technical Record Comment PT NOTE S: Pt denied any pain at rest but c/o L UE pain with movement. Agreed to skilled PT. Cleared and premedicated by BETH Dinero. O: Received awake in semi-swain. Supine to sit 1PA. No c/o dizziness. STS with hemiwalker. Gait training with hemiwalker, VCs on sequencing with AD, 3 point gait, no LOB, slow pace, VCs on upright posture and deep breathing. Mod A to supine, VCs on repositioning to center of bed. Positioned in semi-swain, call light and all necessities within reach, in no apparent distress. A: Pt sandro tx well. Decreased gait training this session d/t decreased endurance and increased pain. Requires less encouragement to participate; pt pleasant throughout. P: Continue with POC.
--- NOTE | 2018-06-04 16:09 | DS ---
Date/Time of Note Date/Time of Note DATE: 06/04/18 TIME: 16:05 Discharge Summary Admission/Discharge Info Admit Date/Time May 27, 2018 at 21:43 Discharge Date/Time June 04, 2018 Discharge Diagnosis 1. Left proximal humerus fracture and a closed severely comminuted intra- articular left distal humerus fracture- stable - CM on board and states needs SNF placement then can arrange appointment with ortho as outpatient. Discussed plan of care with Dr. Gruber - Orthopedic surgeon, Dr. Gruber, is recommending higher level of care given complexity of fracture. Spoke to CM who reached out to [facility]. Per [facility] ortho, patient will need to follow up as outpatient in clinic for evaluation and will not be accepted as a transfer. When discussed with Dr. Gruber, he emphasized need for elbow to be repaired in the next 1-2 weeks due to severity of fracture and was willing to get in contact with ortho at [facility]. requested a contact number for orthopedic surgeon inclusion manager or transfer line for MD to MD but Toyin BENITEZ at [facility] refused to provide. [facility] Dr. Gruber can call the hospital and request via overhead paging to speak with orthopedic surgeon. Request placed for stat appointment with ortho - Pain control and continue arm in sling with non weight bearing to LUE 2. Left femoral neck fracture s/p repair on 05/28/18 - Ortho on board and consultation appreciated. - PT on board 3. h/o depression - Continue on Cymbalta 4. Diabetes Mellitus - A1c noted - holding glipizide at this time - ISS and accuchecks 5. Constipation - bowel regime Patient Condition: Good Hospital Course Patient is a 62-year-old female with a history of depression who fell and suffered a left proximal humerus fracture and a closed severely comminuted intra-articular left distal humerus fracture. Patient also suffered a left femoral neck fracture and is status post surgical repair on 05/28/2018, left arm splint placed during surgery. Patient did need ultimate surgery for left arm to be done at a tertiary center. Patient was stable for DC to a nursing facility, on day of discharge patient's vitals, labs and physical exam are stable. Home Meds Active Scripts Sennosides/Docusate Sodium (Dok Plus Tablet) 1 Each Tablet, 1 TAB PO BID, #30 TAB Prov:BARON LITTLE 06/04/18 Polyethylene Glycol* (Miralax*) 17 Gm Powd.pack, 17 GM PO DAILY, #30 Prov:BARON LITTLE 06/04/18 Bisacodyl* (Bisacodyl*) 5 Mg Tablet.dr, 5 MG PO DAILY PRN for CONSTIPATION, #30 Prov:BARON LITTLE 06/04/18 Enoxaparin Sodium* (Enoxaparin Sodium*) 40 Mg/0.4 Ml Syringe, 40 MG SC DAILY for 30 Days Prov:BARON LITTLE 06/04/18 Hydrocodone Bit-Acetaminophen (Hydrocodone Bit-APAP) 5-325MG Tablet, 2 TAB PO Q6H PRN for PAIN LEVEL 7-10, #30 TAB Prov:BARON LITTLE 06/04/18 Hydrocodone Bit-Acetaminophen (Hydrocodone Bit-APAP) 5-325MG Tablet, 1 TAB PO Q6H PRN for PAIN LEVEL 4-6, #30 TAB Prov:BARON LITTLE 06/04/18 Glipizide* (Glipizide*) 5 Mg Tablet, 2.5 MG GTB AC BREAKFAST, #30 TAB Prov:NING MONTANEZ MD 02/20/18 Duloxetine Hcl* (Cymbalta*) 30 Mg Capsule.dr, 30 MG PO DAILY, #30 Prov:NING MONTANEZ MD 02/20/18 Discontinued Reported Medications Ibuprofen* (Ibuprofen*) 600 Mg Tablet, 600 MG PO Q8, TAB 03/06/18 Follow-up Plan [facility]-up physicians at [facility] facility Primary Care Provider Care Physician No Primary Time spent on discharge: > 30 minutes BARON LITTLE Jun 04, 2018 16:09
--- NOTE | 2018-06-04 16:49 | NUR ---
TRANSFER NOTE Report given to Alexandra at [facility]. IV D/C. Vitals stable. Left elbow with felisha wrap and sling dry and intact. Left hip with mepilex dressing dry and intact. All belongings with pt and ems services.
== END 2018-06-04 16:35 | DRG 481 ==
LOC: 6WM 21:43 → MS1 05-28 22:28
PROVIDERS: ADMIT Internal Medicine; ATTEND Internal Medicine
PROC: 2W3BX1Z Immobilization of Left Upper Arm using Splint (ICD-10-PCS; 2018-05-28)
PROC: 0QH734Z Insertion of Internal Fixation Device into Left Upper Femur, Percutaneous Approach (ICD-10-PCS; principal; 2018-05-28 18:00)
DX: S72.012A Unspecified intracapsular fracture of left femur, initial encounter for closed fracture (principal); S42.292A Other displaced fracture of upper end of left humerus, initial encounter for closed fracture; S42.492A Other displaced fracture of lower end of left humerus, initial encounter for closed fracture; F32.9 Major depressive disorder, single episode, unspecified; E11.9 Type 2 diabetes mellitus without complications; K59.00 Constipation, unspecified; W10.8XXA Fall (on) (from) other stairs and steps, initial encounter; Y92.59 Other trade areas as the place of occurrence of the external cause
CPT/HCPCS: 71045; 72170; 73060; 73090; 73510; 73520; 73530; 73550; 80053; 80061; 80069; 82962; 83036; 83540; 83735; 84443; 85014; 85018; 85025; 85610; 86803; 86850; 86900; 86901; 87081; 87086; 87340; 93005; 93306; 93880; 97110; 97116; 97162; 97530; J0690; J1100; J1170; J1200; J1644; J1650; J1815; J2060; J2250; J2270; J2274; J2370; J2405; J2543; J2765; J2795; J3010; P9045

== ENCOUNTER 2019-03-11 12:29 | Emergency (ER) | payer BC ==
[~2019-03-11] VITALS: Wt 60.0 kg
[~2019-03-11 12:29] MED LIST changes: +BISA5TAB6 PO; +ENOX40DI2 SC; +HYDR-3601 PO; +HYDR-4011 PO; -IBUP-1542 PO; +POLY17PO6 PO; +SENOKOTS PO
[2019-03-11 12:37] VITALS: BP 160/89; PULSE 99; RESP 18
[2019-03-11] MEDS ORDERED: HYDROCODONE/APAP (5/325) TAB PO ONE (14:30)
== END 2019-03-11 17:13 | disposition home or self-care (01) ==
LOC: FTE 12:29
DX: S80.811A Abrasion, right lower leg, initial encounter (principal); E11.9 Type 2 diabetes mellitus without complications; W10.9XXA Fall (on) (from) unspecified stairs and steps, initial encounter; Y92.9 Unspecified place or not applicable; Z79.84 Long term (current) use of oral hypoglycemic drugs
CPT/HCPCS: 72170; 73510; 73562; 73590; Z7502; Z7610; 73502